=== PATIENT | female | born 1945 | race Hispanic/Latino ===

== ENCOUNTER 2018-01-03 09:58 | Observation (INO) | payer OTHER, MEDICARE ==
[~2018-01-03] VITALS: Ht 144.8 cm; Wt 41.5 kg
[~2018-01-03 09:58] MED LIST: AMLO-128 PO; ATOR20TA65 PO; BETH5TAB PO; CEFD300C3 PO; CLOP75TA32 PO; FURO20TA4 PO; GLIM1TAB2 PO; LACT1CAP58 PO; LEVE10006 PO; METO5 PO; MIRT7.5T11 PO; MULT-1250 PO; ONDA4TAB9 PO
[2018-01-03] MEDS ORDERED: LEVOFLOXACIN 500 MG/D5W 100 ML 100 ML ONE (10:38)
[2018-01-03 10:43] LABS: BASOPHILS % (AUTO) 1.4 % (0.0-5.0); EOSINOPHILS % (AUTO) 0.5 % (0.0-8.0); HEMATOCRIT 36.4 % (36-48); LYMPHOCYTES % (AUTO) 13.4 % (21.0-51.0); MEAN CORPUSCULAR HEMOGLOBIN 34.2 pg (27.0-33.0); MEAN CORPUSCULAR HGB CONC 34.2 g/dL (32.0-36.0); MEAN CORPUSCULAR VOLUME 99.9 fL (79-99); MONOCYTES % (AUTO) 5.3 % (3.0-13.0); NEUTROPHILS % (AUTO) 79.4 % (40.0-77.0); PLATELET COUNT (AUTO) 296 K/uL (130-400); RED BLOOD CELL COUNT(AUTO) 3.65 MIL/uL (4.00-5.50); RED CELL DISTRIBUTION WIDTH 14.4 % (11.0-15.5); WHITE BLOOD COUNT (AUTO) 11.3 K/uL (4.8-10.8)
[2018-01-03 10:44] LABS: APPEARANCE,URINE TURBID (CLEAR); BILIRUBIN,URINE NEGATIVE (NEGATIVE); COLOR,URINE YELLOW (YELLOW); GLUCOSE, URINE (UA) NEGATIVE (NEGATIVE); KETONES,URINE NEGATIVE (NEGATIVE); LEUKOCYTE ESTERASE ,URINE LARGE (NEGATIVE); NITRATE,URINE NEGATIVE (NEGATIVE); OCCULT BLOOD,URINE MODERATE (NEGATIVE); PH,URINE 7.5 (5.0-8.0); PROTEIN,URINE 100 (NEGATIVE); UROBILINOGEN,URINE 0.2 mg/dL (0.2-1.0)
[2018-01-03] MEDS ORDERED: MORPHINE SULFATE 8 MG/ML VIAL ONE (10:59)
[2018-01-03 11:07] LABS: BACTERIA,URINE Many /HPF (None Seen); RBC,URINE 0-1 /HPF (0-1); SQUAMOUS EPITHELIAL CELL,UR Rare /HPF (0-2); WBC,URINE TNTC /HPF (0-1)
[2018-01-03 11:40] LABS: INR 0.95 (0.85-1.15); PARTIAL THROMBOPLASTIN TIME 26.7 SEC (26.3-35.5)
[2018-01-03 12:31] LABS: BILIRUBIN,TOTAL 0.4 mg/dL (0.2-1.0); POTASSIUM 4.6 mmol/L (3.5-5.1); TOTAL PROTEIN, SERUM 8.9 g/dL (6.0-8.3)
[2018-01-03] MEDS ORDERED: CEFTRIAXONE SODIUM 1 GM IVP SCH (14:00)
[2018-01-03 16:12] VITALS: BP 173/78
[2018-01-03] MEDS ORDERED: HYDRALAZINE HCL 20 MG/ML VIAL IV PRN (16:15)
[2018-01-03] MEDS ORDERED: ACETAMINOPHEN 325 MG TAB PO PRN (16:15)
[2018-01-03] MEDS ORDERED: ONDANSETRON HCL 4 MG/2 ML VIAL IV PRN (16:15)
[2018-01-03] MEDS: MORPHINE SULFATE 2 MG/ML 1ML SYG IV PRN ×2 (16:35→22:13)
[2018-01-03] MEDS: AZTREONAM 1 GM VIAL IVP SCH (16:37)
[2018-01-03] MEDS: ACETAMINOPHEN-CODEINE 300/30MG TAB PO PRN (18:35)
[2018-01-03 20:00] VITALS: BP 145/70
[2018-01-03] MEDS: BETHANECHOL CHLORIDE 5 MG PO SCH (21:00)
[2018-01-03] MEDS: LEVETIRACETAM 500 MG TABLET PO SCH (22:07)
[2018-01-03] MEDS: MIRTAZAPINE 15 MG TABLET PO SCH (22:08)
[2018-01-04] VITALS: BP 138/66
[2018-01-04 04:00] VITALS: BP 142/56
[2018-01-04] MEDS: AZTREONAM 1 GM VIAL IVP SCH ×2 (04:11→18:29)
[2018-01-04] MEDS: MORPHINE SULFATE 2 MG/ML 1ML SYG IV PRN ×2 (04:29→21:25)
[2018-01-04 04:53] LABS: HEMATOCRIT 32.9 % (36-48); MEAN CORPUSCULAR HEMOGLOBIN 33.4 pg (27.0-33.0); MEAN CORPUSCULAR HGB CONC 33.3 g/dL (32.0-36.0); MEAN CORPUSCULAR VOLUME 100.3 fL (79-99); PLATELET COUNT (AUTO) 249 K/uL (130-400); RED BLOOD CELL COUNT(AUTO) 3.28 MIL/uL (4.00-5.50); RED CELL DISTRIBUTION WIDTH 14.4 % (11.0-15.5); WHITE BLOOD COUNT (AUTO) 8.3 K/uL (4.8-10.8)
[2018-01-04 05:05] LABS: POTASSIUM 5.2 mmol/L (3.5-5.1)
[2018-01-04 07:00] VITALS: BP 157/75
[2018-01-04] MEDS ORDERED: CLOPIDOGREL BISULFATE 75 MG TAB PO SCH (09:00)
[2018-01-04] MEDS: FUROSEMIDE 20 MG TABLET PO SCH (09:00)
[2018-01-04] MEDS: BETHANECHOL CHLORIDE 5 MG PO SCH ×3 (09:00→21:00)
[2018-01-04] MEDS: FAMOTIDINE/PF 20 MG/2 ML VIAL IV SCH (09:52)
[2018-01-04] MEDS: AMLODIPINE-BENAZEPRIL 5-20 MG PO SCH (09:53)
[2018-01-04] MEDS: MULTIVITAMIN WITH MINERALS TABLET PO SCH (09:53)
[2018-01-04] MEDS: LEVETIRACETAM 500 MG TABLET PO SCH ×2 (09:53→21:13)
[2018-01-04] MEDS: ATORVASTATIN CALCIUM 40 MG TABLET PO SCH (09:53)
[2018-01-04] MEDS: LACTOBACILLUS RHAMNOSUS GG 1 EACH CAP.SPRINK PO SCH (09:53)
[2018-01-04] MEDS: CLOPIDOGREL BISULFATE 75 MG TAB PO SCH (09:53)
[2018-01-04] MEDS ORDERED: LIDOCAINE HCL 2% JELLY 5 ML TP SCH (10:15)
[2018-01-04 11:19] VITALS: BP 131/71
[2018-01-04] MEDS ORDERED: 0.9% SODIUM CHLORIDE 250 ML IV BAG IV PRN (14:15)
[2018-01-04] MEDS ORDERED: ALBUMIN (HUMAN) 25% 100 ML IV PRN (14:15)
[2018-01-04] MEDS ORDERED: SODIUM CHLORIDE 0.9% 1000ML 1,000 ML IV PRN (14:15)
[2018-01-04] MEDS ORDERED: MORPHINE SULFATE 4 MG/1ML SYG ONE (16:32)
[2018-01-04] MEDS: PHENAZOPYRIDINE HCL 200 MG TABLET PO SCH ×2 (16:34→21:13)
[2018-01-04] MEDS ORDERED: FERR210T PO (18:02)
[2018-01-04] MEDS ORDERED: FLUO20TA29 PO (18:02)
[2018-01-04 20:00] VITALS: BP 90/65
[2018-01-04] MEDS: MIRTAZAPINE 15 MG TABLET PO SCH (21:13)
[2018-01-05] VITALS: BP 109/44
[2018-01-05 03:55] VITALS: BP 104/53
[2018-01-05] MEDS: AZTREONAM 1 GM VIAL IVP SCH (04:19)
[2018-01-05 05:15] LABS: BASOPHILS % (AUTO) 1.1 % (0.0-5.0); EOSINOPHILS % (AUTO) 2.9 % (0.0-8.0); HEMATOCRIT 32.5 % (36-48); LYMPHOCYTES % (AUTO) 24.8 % (21.0-51.0); MEAN CORPUSCULAR HEMOGLOBIN 34.3 pg (27.0-33.0); MEAN CORPUSCULAR HGB CONC 34.2 g/dL (32.0-36.0); MEAN CORPUSCULAR VOLUME 100.3 fL (79-99); MONOCYTES % (AUTO) 10.2 % (3.0-13.0); PLATELET COUNT (AUTO) 249 K/uL (130-400); RED BLOOD CELL COUNT(AUTO) 3.24 MIL/uL (4.00-5.50); RED CELL DISTRIBUTION WIDTH 14.2 % (11.0-15.5); WHITE BLOOD COUNT (AUTO) 9.9 K/uL (4.8-10.8)
[2018-01-05 05:22] LABS: CREATININE 5.1 mg/dL (0.5-1.5); POTASSIUM 4.8 mmol/L (3.5-5.1)
[2018-01-05 08:00] VITALS: BP 108/52
[2018-01-05] MEDS: BETHANECHOL CHLORIDE 5 MG PO SCH (08:56)
[2018-01-05] MEDS: FAMOTIDINE/PF 20 MG/2 ML VIAL IV SCH (09:18)
[2018-01-05] MEDS: LACTOBACILLUS RHAMNOSUS GG 1 EACH CAP.SPRINK PO SCH (09:19)
[2018-01-05] MEDS: PHENAZOPYRIDINE HCL 200 MG TABLET PO SCH (09:19)
[2018-01-05] MEDS: ATORVASTATIN CALCIUM 40 MG TABLET PO SCH (09:19)
[2018-01-05] MEDS: MULTIVITAMIN WITH MINERALS TABLET PO SCH (09:19)
[2018-01-05] MEDS: AMLODIPINE-BENAZEPRIL 5-20 MG PO SCH (09:19)
[2018-01-05] MEDS: LEVETIRACETAM 500 MG TABLET PO SCH (09:20)
[2018-01-05] MEDS: CLOPIDOGREL BISULFATE 75 MG TAB PO SCH (09:20)
[2018-01-05] MEDS: FUROSEMIDE 20 MG TABLET PO SCH (09:20)
[2018-01-05] MEDS: ACETAMINOPHEN-CODEINE 300/30MG TAB PO PRN (09:39)
[2018-01-05] MEDS ORDERED: LEVO500T2 PO (11:00)
[2018-01-05 12:00] VITALS: BP 113/54
== END 2018-01-05 14:52 | disposition home or self-care (01) ==
LOC: EDH 09:58 → INTOOBSV 13:37 → EDHIP 13:37 → 3BH 15:47
PROVIDERS: ADMIT Hospitalist; ATTEND Hospitalist
DX: N10 Acute pyelonephritis (principal); I12.0 Hypertensive chronic kidney disease with stage 5 chronic kidney disease or end stage renal disease; E11.21 Type 2 diabetes mellitus with diabetic nephropathy; N18.6 End stage renal disease; E78.5 Hyperlipidemia, unspecified; N73.9 Female pelvic inflammatory disease, unspecified; Z82.49 Family history of ischemic heart disease and other diseases of the circulatory system; Z83.3 Family history of diabetes mellitus; Z99.2 Dependence on renal dialysis; Z90.49 Acquired absence of other specified parts of digestive tract
CPT/HCPCS: G0257 ×85; 36415; 80048; 80053; 81001; 82948; 83690; 84484; 85025; 85027; 85610; 85730; 87040; 90935; 93005; 96374; 96375; 96376; A4218; G0378; J1956; J2270; J3490

== ENCOUNTER 2018-01-11 14:02 | Inpatient (IN) | payer OTHER, MEDICARE ==
[~2018-01-11] VITALS: Ht 144.8 cm; Wt 39.0 kg
[~2018-01-11 14:02] MED LIST changes: -CEFD300C3 PO; +FERR210T PO; +FLUO20TA29 PO; +LEVO500T2 PO
[2018-01-11 14:42] LABS: HEMATOCRIT 32.8 % (36-48); LYMPHOCYTES % (AUTO) 19.9 % (21.0-51.0); MEAN CORPUSCULAR HEMOGLOBIN 34.6 pg (27.0-33.0); MEAN CORPUSCULAR VOLUME 98.8 fL (79-99); MONOCYTES % (AUTO) 6.4 % (3.0-13.0); NEUTROPHILS % (AUTO) 70.7 % (40.0-77.0); PLATELET COUNT (AUTO) 396 K/uL (130-400); RED BLOOD CELL COUNT(AUTO) 3.32 MIL/uL (4.00-5.50); RED CELL DISTRIBUTION WIDTH 14.2 % (11.0-15.5); WHITE BLOOD COUNT (AUTO) 13.2 K/uL (4.8-10.8)
[2018-01-11 14:46] LABS: APPEARANCE,URINE Turbid (CLEAR); BILIRUBIN,URINE Negative (NEGATIVE); COLOR,URINE Yellow (YELLOW); GLUCOSE, URINE (UA) Negative (NEGATIVE); KETONES,URINE Negative (NEGATIVE); LEUKOCYTE ESTERASE ,URINE Large (NEGATIVE); NITRATE,URINE Negative (NEGATIVE); OCCULT BLOOD,URINE Small (NEGATIVE); PH,URINE 6.5 (5.0-8.0); PROTEIN,URINE POS 2+ (NEGATIVE); UROBILINOGEN,URINE 0.2 mg/dL (0.2-1.0)
[2018-01-11 14:53] LABS: POTASSIUM 3.4 mmol/L (3.5-5.1)
[2018-01-11 14:57] LABS: ALBUMIN 3.3 g/dL (3.5-5.0); BILIRUBIN,TOTAL 0.4 mg/dL (0.2-1.0)
[2018-01-11 15:00] LABS: BACTERIA,URINE Moderate /HPF (None Seen); RBC,URINE None Seen /HPF (0-1); SQUAMOUS EPITHELIAL CELL,UR None Seen /HPF (0-2); WBC,URINE 51-100 /HPF (0-1)
[2018-01-11] MEDS ORDERED: SODIUM CHLORIDE 0.9% 50 ML IV ONE (15:06)
[2018-01-11] MEDS ORDERED: CEFTRIAXONE SODIUM 1 GM ONE (15:06)
[2018-01-11] MEDS ORDERED: ONDANSETRON HCL 4 MG/2 ML VIAL ONE (15:11)
[2018-01-11] MEDS ORDERED: MORPHINE SULFATE 4 MG/1ML SYG ONE (15:11)
[2018-01-11] MEDS ORDERED: ACETAMINOPHEN ELIXIR 325 MG/10.15ML UDCUP ONE (16:04)
[2018-01-11] MEDS ORDERED: ENOXAPARIN SODIUM 30 MG/0.3 ML SQ ONE (23:06)
[2018-01-12] MEDS ORDERED: ACETAMINOPHEN 325 MG TAB ONE (00:03)
[2018-01-12 01:30] VITALS: BP 99/41
[2018-01-12 04:00] VITALS: BP 105/43
[2018-01-12 04:59] LABS: HEMATOCRIT 28.7 % (36-48); MEAN CORPUSCULAR HEMOGLOBIN 32.8 pg (27.0-33.0); MEAN CORPUSCULAR HGB CONC 33.3 g/dL (32.0-36.0); MEAN CORPUSCULAR VOLUME 98.6 fL (79-99); NUCLEATED RED BLOOD CELLS 0.1 % (0.0-0.19); PLATELET COUNT (AUTO) 315 K/uL (130-400); RED BLOOD CELL COUNT(AUTO) 2.91 MIL/uL (4.00-5.50); RED CELL DISTRIBUTION WIDTH 14.4 % (11.0-15.5); WHITE BLOOD COUNT (AUTO) 8.2 K/uL (4.8-10.8)
[2018-01-12 05:11] LABS: CREATININE 5.1 mg/dL (0.5-1.5)
[2018-01-12] MEDS ORDERED: DIPHENHYDRAMINE HCL 25 MG CAPSULE PO PRN (06:00)
[2018-01-12] MEDS ORDERED: DiphenhydrAMINE HCL 50 MG/ML VIAL IVP PRN (06:00)
[2018-01-12] MEDS ORDERED: MAG HYDROX/AL HYDROX/SIMETH ES 30 ML SUSP UDCUP PO PRN (06:00)
[2018-01-12] MEDS ORDERED: ACETAMINOPHEN 325 MG TAB PO PRN (06:00)
[2018-01-12] MEDS ORDERED: ONDANSETRON HCL 4 MG/2 ML VIAL IVP PRN (06:00)
[2018-01-12 07:30] VITALS: BP 107/40
[2018-01-12] MEDS: ENOXAPARIN SODIUM 30 MG/0.3 ML SQ SCH (08:58)
[2018-01-12 11:00] VITALS: BP 107/41
[2018-01-12] MEDS: BETHANECHOL 5 MG PO SCH ×2 (14:00→21:00)
[2018-01-12] MEDS ORDERED: GLUCAGON 1MG KIT 1 MG ML IM PRN (14:00)
[2018-01-12] MEDS ORDERED: DEXTROSE 50%-WATER 50 ML DISP.SYRIN IV PRN (14:00)
[2018-01-12 16:00] VITALS: BP 108/48
[2018-01-12] MEDS ORDERED: CEFTRIAXONE SODIUM 1 GM IVP SCH (16:00)
[2018-01-12] MEDS: FERRIC CITRATE 420 MG PO SCH (17:00)
[2018-01-12] MEDS: INSULIN HUMULIN R 100 UNIT/ML 3ML SQ SCH ×2 (17:36→21:00)
[2018-01-12 20:00] VITALS: BP 116/48
[2018-01-12] MEDS: MIRTAZAPINE 15 MG TABLET PO SCH (21:21)
[2018-01-12] MEDS: LEVETIRACETAM 500 MG TABLET PO SCH (21:21)
[2018-01-12] MEDS: FLUOXETINE HCL 20 MG CAPSULE PO SCH (21:21)
[2018-01-12] MEDS: ACETAMINOPHEN 325 MG TAB PO PRN (21:28)
[2018-01-13] VITALS: BP 124/53
[2018-01-13 04:00] VITALS: BP 113/49
[2018-01-13 05:09] LABS: HEMATOCRIT 28.1 % (36-48); MEAN CORPUSCULAR HEMOGLOBIN 34.4 pg (27.0-33.0); MEAN CORPUSCULAR HGB CONC 34.4 g/dL (32.0-36.0); MEAN CORPUSCULAR VOLUME 99.9 fL (79-99); PLATELET COUNT (AUTO) 334 K/uL (130-400); RED BLOOD CELL COUNT(AUTO) 2.82 MIL/uL (4.00-5.50); RED CELL DISTRIBUTION WIDTH 14.2 % (11.0-15.5); WHITE BLOOD COUNT (AUTO) 9.8 K/uL (4.8-10.8)
[2018-01-13 05:17] LABS: CREATININE 6.6 mg/dL (0.5-1.5); POTASSIUM 4.1 mmol/L (3.5-5.1)
[2018-01-13] MEDS: FERRIC CITRATE 420 MG PO SCH ×3 (06:08→17:00)
[2018-01-13] MEDS: ACETAMINOPHEN 325 MG TAB PO PRN ×2 (06:54→21:24)
[2018-01-13] MEDS: INSULIN HUMULIN R 100 UNIT/ML 3ML SQ SCH ×4 (06:57→21:29)
[2018-01-13 07:30] VITALS: BP 102/45
[2018-01-13] MEDS: LIDOCAINE HCL 2% JELLY 5 ML TP SCH (08:42)
[2018-01-13] MEDS: BETHANECHOL 5 MG PO SCH ×3 (09:00→21:00)
[2018-01-13] MEDS: LEVETIRACETAM 500 MG TABLET PO SCH ×2 (10:48→21:23)
[2018-01-13] MEDS: MULTIVITAMINS/MINERALS/IRO TAB PO SCH (10:48)
[2018-01-13] MEDS: GLIMEPIRIDE 2 MG TABLET PO SCH (10:48)
[2018-01-13 11:00] VITALS: BP 123/48
[2018-01-13] MEDS ORDERED: SODIUM CHLORIDE 0.9% 1000ML 1,000 ML IV PRN (12:45)
[2018-01-13] MEDS ORDERED: ALBUMIN (HUMAN) 25% 100 ML IV PRN (12:45)
[2018-01-13] MEDS ORDERED: 0.9% SODIUM CHLORIDE 250 ML IV BAG IV PRN (12:45)
[2018-01-13] MEDS: MORPHINE SULFATE 2 MG/ML 1ML SYG IVP PRN (13:12)
[2018-01-13] MEDS: MEROPENEM 1 GM VIAL IVP SCH (13:39)
[2018-01-13] MEDS ORDERED: SODIUM CHLORIDE 0.9% 1000ML 1,000 ML IV SCH (14:30)
[2018-01-13 14:43] LABS: INR 0.93 (0.85-1.15); PROTHROMBIN TIME 9.8 SEC (9.6-11.6)
[2018-01-13 16:00] VITALS: BP 142/55
[2018-01-13] MEDS: ATORVASTATIN CALCIUM 40 MG TABLET PO SCH (17:43)
[2018-01-13] MEDS: FUROSEMIDE 20 MG TABLET PO SCH (17:43)
[2018-01-13] MEDS: CLOPIDOGREL BISULFATE 75 MG TAB PO SCH (17:44)
[2018-01-13] MEDS: ENOXAPARIN SODIUM 30 MG/0.3 ML SQ SCH (17:45)
[2018-01-13 19:00] VITALS: BP 128/61
[2018-01-13] MEDS: FLUOXETINE HCL 20 MG CAPSULE PO SCH (21:23)
[2018-01-13] MEDS: MIRTAZAPINE 15 MG TABLET PO SCH (21:23)
[2018-01-14] VITALS (7 sets, daily range): BP systolic 101–160; BP diastolic 45–67
[2018-01-14] MEDS: FERRIC CITRATE 420 MG PO SCH ×3 (05:59→16:07)
[2018-01-14] MEDS: INSULIN HUMULIN R 100 UNIT/ML 3ML SQ SCH ×4 (06:14→21:52)
[2018-01-14] MEDS: MORPHINE SULFATE 2 MG/ML 1ML SYG IVP PRN (08:10)
[2018-01-14] MEDS: MULTIVITAMINS/MINERALS/IRO TAB PO SCH (08:10)
[2018-01-14] MEDS: GLIMEPIRIDE 2 MG TABLET PO SCH (08:10)
[2018-01-14] MEDS: ATORVASTATIN CALCIUM 40 MG TABLET PO SCH (08:11)
[2018-01-14] MEDS: LEVETIRACETAM 500 MG TABLET PO SCH ×2 (08:11→21:03)
[2018-01-14] MEDS: FUROSEMIDE 20 MG TABLET PO SCH (08:11)
[2018-01-14] MEDS: BETHANECHOL 5 MG PO SCH ×3 (08:12→21:00)
[2018-01-14] MEDS: ACETAMINOPHEN-CODEINE 300/30MG TAB PO PRN ×2 (10:07→16:18)
[2018-01-14] MEDS: ENOXAPARIN SODIUM 30 MG/0.3 ML SQ SCH (16:05)
[2018-01-14] MEDS: CLOPIDOGREL BISULFATE 75 MG TAB PO SCH (16:05)
[2018-01-14] MEDS: MEROPENEM 1 GM VIAL IVP SCH (16:05)
[2018-01-14] MEDS: MIRTAZAPINE 15 MG TABLET PO SCH (21:03)
[2018-01-14] MEDS: FLUOXETINE HCL 20 MG CAPSULE PO SCH (21:03)
[2018-01-15] MEDS: ACETAMINOPHEN-CODEINE 300/30MG TAB PO PRN ×2 (02:28→09:12)
[2018-01-15 03:20] VITALS: BP 140/69
[2018-01-15 05:50] LABS: BASOPHILS % (AUTO) 0.8 % (0.0-5.0); EOSINOPHILS % (AUTO) 2.2 % (0.0-8.0); HEMATOCRIT 28.6 % (36-48); LYMPHOCYTES % (AUTO) 17.2 % (21.0-51.0); MEAN CORPUSCULAR HEMOGLOBIN 34.2 pg (27.0-33.0); MEAN CORPUSCULAR HGB CONC 34.4 g/dL (32.0-36.0); MEAN CORPUSCULAR VOLUME 99.5 fL (79-99); MONOCYTES % (AUTO) 9.4 % (3.0-13.0); NEUTROPHILS % (AUTO) 70.4 % (40.0-77.0); PLATELET COUNT (AUTO) 344 K/uL (130-400); RED BLOOD CELL COUNT(AUTO) 2.87 MIL/uL (4.00-5.50); RED CELL DISTRIBUTION WIDTH 14.4 % (11.0-15.5); WHITE BLOOD COUNT (AUTO) 9.7 K/uL (4.8-10.8)
[2018-01-15 05:53] LABS: POTASSIUM 3.9 mmol/L (3.5-5.1)
[2018-01-15] MEDS: INSULIN HUMULIN R 100 UNIT/ML 3ML SQ SCH ×3 (07:30→21:00)
[2018-01-15] MEDS: FERRIC CITRATE 420 MG PO SCH ×2 (07:30→11:30)
[2018-01-15 08:00] VITALS: BP 115/62
[2018-01-15] MEDS: BETHANECHOL 5 MG PO SCH ×2 (09:00→14:00)
[2018-01-15] MEDS: LEVETIRACETAM 500 MG TABLET PO SCH (09:11)
[2018-01-15] MEDS: CLOPIDOGREL BISULFATE 75 MG TAB PO SCH (09:11)
[2018-01-15] MEDS: MULTIVITAMINS/MINERALS/IRO TAB PO SCH (09:11)
[2018-01-15 12:00] VITALS: BP 104/64
[2018-01-15] MEDS: MEROPENEM 1 GM VIAL IVP SCH (14:42)
[2018-01-15] MEDS: LIDOCAINE HCL 2% JELLY 5 ML TP SCH (14:46)
[2018-01-15] MEDS: MORPHINE SULFATE 2 MG/ML 1ML SYG IVP PRN (14:59)
[2018-01-15 16:00] VITALS: BP 106/58
[2018-01-15 20:10] VITALS: BP 136/70
[2018-01-15] MEDS ORDERED: ATORVASTATIN CALCIUM 40 MG TABLET PO SCH (21:00)
== END 2018-01-15 21:40 | disposition home health service (06) | DRG 689 ==
LOC: EDH 14:02 → OBSVTOIN 17:40 → EDHIP 17:40 → 3DH 01-12 00:35
PROVIDERS: ADMIT Family Medicine; ATTEND Family Medicine
PROC: 5A1D70Z Performance of Urinary Filtration, Intermittent, Less than 6 Hours Per Day (ICD-10-PCS; principal; 2018-01-13)
PROC: 02HV33Z Insertion of Infusion Device into Superior Vena Cava, Percutaneous Approach (ICD-10-PCS; 2018-01-14)
PROC: 5A1D70Z Performance of Urinary Filtration, Intermittent, Less than 6 Hours Per Day (ICD-10-PCS; 2018-01-15)
DX: N39.0 Urinary tract infection, site not specified (principal); N18.6 End stage renal disease; I12.0 Hypertensive chronic kidney disease with stage 5 chronic kidney disease or end stage renal disease; E11.22 Type 2 diabetes mellitus with diabetic chronic kidney disease; D64.9 Anemia, unspecified; R53.81 Other malaise; Z16.12 Extended spectrum beta lactamase (ESBL) resistance; E11.21 Type 2 diabetes mellitus with diabetic nephropathy; E11.51 Type 2 diabetes mellitus with diabetic peripheral angiopathy without gangrene; B96.20 Unspecified Escherichia coli [E. coli] as the cause of diseases classified elsewhere; E78.5 Hyperlipidemia, unspecified; N32.89 Other specified disorders of bladder; Z16.24 Resistance to multiple antibiotics; Z72.0 Tobacco use; Z99.2 Dependence on renal dialysis; Z87.440 Personal history of urinary (tract) infections; Z88.0 Allergy status to penicillin; Z90.721 Acquired absence of ovaries, unilateral; Z98.49 Cataract extraction status, unspecified eye; Z83.3 Family history of diabetes mellitus; Z82.49 Family history of ischemic heart disease and other diseases of the circulatory system
CPT/HCPCS: 36415; 71045; 74176; 76770; 80048; 80053; 81001; 82948; 85025; 85027; 85610; 87077; 87088; 87186; 90935; A4218; C1894; J0696; J1650; J1815; J2185; J2270; J2405; J7030

== ENCOUNTER 2018-03-22 10:04 | Observation (INO) | payer OTHER, MEDICARE ==
[~2018-03-22] VITALS: Ht 144.8 cm; Wt 39.5 kg
[~2018-03-22 10:04] MED LIST changes: -LEVO500T2 PO; -METO5 PO
[2018-03-22 10:43] LABS: BASOPHILS % (AUTO) 0.9 % (0.0-5.0); HEMATOCRIT 30.7 % (36-48); LYMPHOCYTES % (AUTO) 18.2 % (21.0-51.0); MEAN CORPUSCULAR HGB CONC 33.8 g/dL (32.0-36.0); MEAN CORPUSCULAR VOLUME 100.8 fL (79-99); MONOCYTES % (AUTO) 7.6 % (3.0-13.0); NEUTROPHILS % (AUTO) 71.3 % (40.0-77.0); PLATELET COUNT (AUTO) 280 K/uL (130-400); RED BLOOD CELL COUNT(AUTO) 3.04 MIL/uL (4.00-5.50); RED CELL DISTRIBUTION WIDTH 15.8 % (11.0-15.5)
[2018-03-22 10:51] LABS: ALBUMIN 3.3 g/dL (3.5-5.0); ASPARTATE AMINOTRANSFERASE 16 U/L (10-37); CARBON DIOXIDE 27 mmol/L (21-32); CREATININE 7.4 mg/dL (0.5-1.5); GLOMERULAR FILTR. RATE CALC 6 mL/min (>60); GLUCOSE,RANDOM 177 mg/dL (70-105); LIPASE 51 U/L (114-286); POTASSIUM 5.6 mmol/L (3.5-5.1); SODIUM SERUM 129 mmol/L (136-145); TOTAL PROTEIN, SERUM 7.8 g/dL (6.0-8.3); UREA NITROGEN, BLOOD 68 mg/dL (7-18)
[2018-03-22 10:54] LABS: ALANINE AMINOTRANSFERASE < 6 U/L (12-78)
[2018-03-22 10:56] LABS: CHLORIDE 86 mmol/L (101-111)
[2018-03-22] MEDS ORDERED: ONDANSETRON HCL 4 MG/2 ML VIAL ONE (11:13)
[2018-03-22] MEDS ORDERED: LORAZEPAM 2 MG/ML 1 ML VIAL ONE (11:14)
[2018-03-22 11:19] LABS: APPEARANCE,URINE Clear (CLEAR); BILIRUBIN,URINE Negative (NEGATIVE); COLOR,URINE Yellow (YELLOW); GLUCOSE, URINE (UA) Negative (NEGATIVE); KETONES,URINE Negative (NEGATIVE); LEUKOCYTE ESTERASE ,URINE Negative (NEGATIVE); NITRATE,URINE Negative (NEGATIVE); OCCULT BLOOD,URINE Negative (NEGATIVE); PH,URINE >=9.0 (5.0-8.0); PROTEIN,URINE POS 2+ (NEGATIVE); UROBILINOGEN,URINE 0.2 mg/dL (0.2-1.0)
[2018-03-22 11:46] LABS: BACTERIA,URINE None Seen /HPF (None Seen); RBC,URINE None Seen /HPF (0-1); WBC,URINE None Seen /HPF (0-1)
[2018-03-22] MEDS ORDERED: ACETAMINOPHEN 325 MG TAB PO PRN ×2 (14:15)
[2018-03-22] MEDS ORDERED: HYDRALAZINE HCL 20 MG/ML VIAL IV PRN (14:15)
[2018-03-22] MEDS ORDERED: ONDANSETRON HCL 4 MG/2 ML VIAL IV PRN (14:15)
[2018-03-22] MEDS ORDERED: GADODIAMIDE 5 MMOL/10 ML VIAL 5 MMOL/10 ML ML IV ONE (14:27)
[2018-03-22 15:00] LABS: HEMOGLOBIN A1C 7.5 % (4.0-6.0)
[2018-03-22 15:09] LABS: MAGNESIUM 2.5 mg/dL (1.80-2.40); PHOSPHORUS 8.9 mg/dL (2.5-4.9); THYROID STIMULATING HORMONE 0.8 uIU/mL (0.36-3.74)
[2018-03-22] MEDS ORDERED: SODIUM CHLORIDE 0.9% 1000ML 1,000 ML IV ONE (18:17)
[2018-03-22] MEDS ORDERED: ACETAMINOPHEN 325 MG TAB ONE (20:28)
[2018-03-22] MEDS ORDERED: CLONIDINE HCL 0.1 MG TABLET ONE (20:28)
[2018-03-22] MEDS ORDERED: ATORVASTATIN CALCIUM 20 MG TABLET ONE (20:28)
[2018-03-22] MEDS ORDERED: LEVETIRACETAM 500 MG TABLET PO ONE (20:29)
[2018-03-22] MEDS ORDERED: METOPROLOL TARTRATE 25 MG TAB ONE (20:29)
[2018-03-22] MEDS: MIRTAZAPINE 15 MG TABLET PO SCH (21:00)
[2018-03-22] MEDS: ATORVASTATIN CALCIUM 20 MG TABLET PO SCH (21:00)
[2018-03-22] MEDS: FLUOXETINE HCL 20 MG CAPSULE PO SCH (21:00)
[2018-03-23] MEDS: CLONIDINE HCL 0.1 MG TABLET PO SCH ×3 (08:00→21:31)
[2018-03-23] MEDS: METOPROLOL TARTRATE 25 MG TAB PO SCH ×3 (08:00→21:00)
[2018-03-23] MEDS: LEVETIRACETAM 500 MG TABLET PO SCH ×3 (08:00→15:00)
[2018-03-23] MEDS ORDERED: MORPHINE SULFATE 4 MG/1ML SYG ONE (08:03)
[2018-03-23] MEDS ORDERED: LEVETIRACETAM 500 MG TABLET PO ONE (08:22)
[2018-03-23] MEDS ORDERED: FAMOTIDINE 20MG TAB 20 MG TAB ONE (08:22)
[2018-03-23] MEDS ORDERED: CLOPIDOGREL BISULFATE 75 MG TAB ONE (08:22)
[2018-03-23] MEDS ORDERED: CLONIDINE HCL 0.1 MG TABLET ONE (08:22)
[2018-03-23] MEDS ORDERED: ASPIRIN 81MG TAB.CHEW ONE (08:22)
[2018-03-23] MEDS ORDERED: METOPROLOL TARTRATE 25 MG TAB ONE (08:23)
[2018-03-23] MEDS: CLOPIDOGREL BISULFATE 75 MG TAB PO SCH (08:29)
[2018-03-23] MEDS: FAMOTIDINE 20MG TAB 20 MG TAB PO SCH (08:29)
[2018-03-23] MEDS: ASPIRIN 81 MG EC TAB PO SCH (08:29)
[2018-03-23 08:56] LABS: HEMATOCRIT 31.7 % (36-48); MEAN CORPUSCULAR HEMOGLOBIN 33.7 pg (27.0-33.0); MEAN CORPUSCULAR HGB CONC 33.3 g/dL (32.0-36.0); PLATELET COUNT (AUTO) 267 K/uL (130-400); RED BLOOD CELL COUNT(AUTO) 3.13 MIL/uL (4.00-5.50); RED CELL DISTRIBUTION WIDTH 15.4 % (11.0-15.5); WHITE BLOOD COUNT (AUTO) 6.8 K/uL (4.8-10.8)
[2018-03-23 09:02] LABS: HEMOGLOBIN A1C 7.7 % (4.0-6.0)
[2018-03-23 09:11] LABS: MAGNESIUM 2.6 mg/dL (1.80-2.40); POTASSIUM 5.2 mmol/L (3.5-5.1)
[2018-03-23 09:16] LABS: CREATININE 8.4 mg/dL (0.5-1.5)
[2018-03-23] MEDS: AMLODIPINE-BENAZEPRIL 5-20 MG PO SCH (09:45)
[2018-03-23] MEDS: GLIMEPIRIDE 2 MG TABLET PO SCH (09:45)
[2018-03-23 11:00] VITALS: BP 160/71
[2018-03-23] MEDS: INSULIN HUMULIN R 100 UNIT/ML 3ML SQ SCH ×3 (11:30→21:00)
[2018-03-23] MEDS ORDERED: LEVETIRACETAM 500 MG TABLET PO SCH (11:40)
[2018-03-23] MEDS ORDERED: COMPOUND IV REFRIGERATED 1 EACH IVSOLN MISC PRN (11:45)
[2018-03-23 12:00] VITALS: BP 172/57
[2018-03-23] MEDS ORDERED: FOSPHENYTOIN SODIUM 100 MG in SODIUM CHLORIDE 0.9% 50 ML IJ SCH (12:00)
[2018-03-23 16:00] VITALS: BP 111/47
[2018-03-23] MEDS ORDERED: COMPOUND IV MISC 1 EACH IVSOLN MISC PRN (16:30)
[2018-03-23] MEDS ORDERED: MORPHINE SULFATE 2 MG/ML 1ML SYG IVP PRN (16:45)
[2018-03-23] MEDS ORDERED: MORPHINE SULFATE 4 MG/1ML SYG IM PRN (16:45)
[2018-03-23 20:07] VITALS: BP 154/56
[2018-03-23] MEDS: ATORVASTATIN CALCIUM 20 MG TABLET PO SCH (21:30)
[2018-03-23] MEDS: FLUOXETINE HCL 20 MG CAPSULE PO SCH (21:30)
[2018-03-23] MEDS: MIRTAZAPINE 15 MG TABLET PO SCH (21:32)
[2018-03-23] MEDS: FOSPHENYTOIN SODIUM 100 MG in SODIUM CHLORIDE 0.9% 50 ML IJ SCH (23:49)
[2018-03-24] VITALS: BP 139/45
[2018-03-24 04:00] VITALS: BP 114/48
[2018-03-24 04:11] LABS: HEMATOCRIT 27.5 % (36-48); MEAN CORPUSCULAR HEMOGLOBIN 33.8 pg (27.0-33.0); MEAN CORPUSCULAR HGB CONC 33.3 g/dL (32.0-36.0); MEAN CORPUSCULAR VOLUME 101.6 fL (79-99); PLATELET COUNT (AUTO) 258 K/uL (130-400); RED BLOOD CELL COUNT(AUTO) 2.71 MIL/uL (4.00-5.50); RED CELL DISTRIBUTION WIDTH 15.8 % (11.0-15.5); WHITE BLOOD COUNT (AUTO) 8.1 K/uL (4.8-10.8)
[2018-03-24 04:35] LABS: MAGNESIUM 2.5 mg/dL (1.80-2.40); PHOSPHORUS 10.4 mg/dL (2.5-4.9)
[2018-03-24 04:52] LABS: CREATININE 8.6 mg/dL (0.5-1.5)
[2018-03-24] MEDS: INSULIN HUMULIN R 100 UNIT/ML 3ML SQ SCH ×2 (06:53→11:30)
[2018-03-24 08:00] VITALS: BP 140/53
[2018-03-24] MEDS ORDERED: 0.9% SODIUM CHLORIDE 1000 ML IV BAG IV PRN (08:45)
[2018-03-24] MEDS ORDERED: SODIUM CHLORIDE 0.9% 1000ML 1,000 ML IV PRN (08:45)
[2018-03-24] MEDS ORDERED: ACETAMINOPHEN 325 MG TAB PO PRN (08:45)
[2018-03-24] MEDS ORDERED: LIDOCAINE HCL-MPF 1% 2ML VIAL IJ PRN (08:45)
[2018-03-24] MEDS: CLOPIDOGREL BISULFATE 75 MG TAB PO SCH (09:00)
[2018-03-24 11:00] VITALS: BP 131/85
[2018-03-24] MEDS: METOPROLOL TARTRATE 25 MG TAB PO SCH (12:30)
[2018-03-24] MEDS: ASPIRIN 81 MG EC TAB PO SCH (12:30)
[2018-03-24] MEDS: FAMOTIDINE 20MG TAB 20 MG TAB PO SCH (12:30)
[2018-03-24] MEDS: LEVETIRACETAM 500 MG TABLET PO SCH (12:30)
[2018-03-24] MEDS: GLIMEPIRIDE 2 MG TABLET PO SCH (12:30)
[2018-03-24 12:31] VITALS: BP 186/78
[2018-03-24] MEDS: AMLODIPINE-BENAZEPRIL 5-20 MG PO SCH (12:31)
[2018-03-24] MEDS: CLONIDINE HCL 0.1 MG TABLET PO SCH (12:31)
[2018-03-24] MEDS: FOSPHENYTOIN SODIUM 100 MG in SODIUM CHLORIDE 0.9% 50 ML IJ SCH (12:32)
== END 2018-03-24 15:47 | disposition home or self-care (01) ==
LOC: EDH 10:04 → EDHIP 14:14 → 4BH 03-23 11:29
PROVIDERS: ADMIT Internal Medicine; ATTEND Internal Medicine
DX: R27.8 Other lack of coordination (principal); R20.0 Anesthesia of skin; E11.22 Type 2 diabetes mellitus with diabetic chronic kidney disease; I12.0 Hypertensive chronic kidney disease with stage 5 chronic kidney disease or end stage renal disease; N18.6 End stage renal disease; E83.39 Other disorders of phosphorus metabolism; E78.2 Mixed hyperlipidemia; D63.1 Anemia in chronic kidney disease; G40.909 Epilepsy, unspecified, not intractable, without status epilepticus; F17.201 Nicotine dependence, unspecified, in remission; Z82.49 Family history of ischemic heart disease and other diseases of the circulatory system; Z83.3 Family history of diabetes mellitus; Z99.2 Dependence on renal dialysis
CPT/HCPCS: 36415 ×3; 70551; 80048 ×2; 80053; 80177; 81001; 82948 ×5; 83036 ×2; 83690; 83735 ×3; 84100 ×3; 84443; 85025; 85027 ×2; 92610; G0257; G0378 ×50; J2060; J2270; J2405; J7030; Q2009 ×2; 90935; A9579

== ENCOUNTER 2018-06-02 07:33 | Emergency (ER) | payer OTHER, MEDICARE ==
[2018-06-02] MEDS ORDERED: DICYCLOMINE HCL 10 MG/ML 2ML AMP IM ONE (07:55)
[2018-06-02] MEDS ORDERED: ONDANSETRON HCL 4 MG/2 ML VIAL ONE (07:55)
[2018-06-02 08:21] LABS: BASOPHILS % (AUTO) 0.9 % (0.0-5.0); EOSINOPHILS % (AUTO) 0.7 % (0.0-8.0); HEMATOCRIT 34.6 % (36-48); LYMPHOCYTES % (AUTO) 7.9 % (21.0-51.0); MEAN CORPUSCULAR HEMOGLOBIN 34.3 pg (27.0-33.0); MEAN CORPUSCULAR VOLUME 100.8 fL (79-99); MONOCYTES % (AUTO) 5.6 % (3.0-13.0); NEUTROPHILS % (AUTO) 84.9 % (40.0-77.0); NUCLEATED RED BLOOD CELLS 0.1 % (0.0-0.19); PLATELET COUNT (AUTO) 324 K/uL (130-400); RED BLOOD CELL COUNT(AUTO) 3.43 MIL/uL (4.00-5.50); RED CELL DISTRIBUTION WIDTH 16.5 % (11.0-15.5); WHITE BLOOD COUNT (AUTO) 11.7 K/uL (4.8-10.8)
[2018-06-02 08:34] LABS: CREATININE 5.8 mg/dL (0.5-1.5); POTASSIUM 5.1 mmol/L (3.5-5.1)
[2018-06-02 08:39] LABS: ALBUMIN 3.7 g/dL (3.5-5.0); BILIRUBIN,TOTAL 1.5 mg/dL (0.2-1.0); TOTAL PROTEIN, SERUM 7.7 g/dL (6.0-8.3)
== END 2018-06-02 10:32 | disposition home or self-care (01) ==
LOC: EDH 07:33
DX: K52.9 Noninfective gastroenteritis and colitis, unspecified (principal); I12.0 Hypertensive chronic kidney disease with stage 5 chronic kidney disease or end stage renal disease; E11.22 Type 2 diabetes mellitus with diabetic chronic kidney disease; N18.6 End stage renal disease; E78.5 Hyperlipidemia, unspecified; Z88.0 Allergy status to penicillin; Z90.710 Acquired absence of both cervix and uterus; Z90.49 Acquired absence of other specified parts of digestive tract; Z99.2 Dependence on renal dialysis; Z72.0 Tobacco use
CPT/HCPCS: 36415; 71045; 80053; 85025; 96361; 96372; 96374; 99285; J0500; J2405

== ENCOUNTER 2018-08-08 20:41 | Observation (INO) | payer OTHER, MEDICARE ==
[~2018-08-08] VITALS: Ht 144.8 cm; Wt 38.4 kg
[2018-08-08 21:28] LABS: BASOPHILS % (AUTO) 0.5 % (0.0-5.0); LYMPHOCYTES % (AUTO) 17.3 % (21.0-51.0); MEAN CORPUSCULAR HEMOGLOBIN 34.1 pg (27.0-33.0); MEAN CORPUSCULAR HGB CONC 34.9 g/dL (32.0-36.0); MEAN CORPUSCULAR VOLUME 97.7 fL (79-99); NEUTROPHILS % (AUTO) 79.2 % (40.0-77.0); PLATELET COUNT (AUTO) 509 K/uL (130-400); RED BLOOD CELL COUNT(AUTO) 3.58 MIL/uL (4.00-5.50); RED CELL DISTRIBUTION WIDTH 16.7 % (11.0-15.5); WHITE BLOOD COUNT (AUTO) 8.1 K/uL (4.8-10.8)
[2018-08-08] MEDS ORDERED: ONDANSETRON HCL 4 MG/2 ML VIAL ONE (21:36)
[2018-08-08 21:42] LABS: ALBUMIN 3.6 g/dL (3.5-5.0); BILIRUBIN,TOTAL 1.5 mg/dL (0.2-1.0); CREATININE 7.1 mg/dL (0.5-1.5); POTASSIUM 4.9 mmol/L (3.5-5.1); TOTAL PROTEIN, SERUM 9.1 g/dL (6.0-8.3)
[2018-08-08] MEDS ORDERED: INSULIN HUMULIN R 100 UNIT/ML 3ML ONE (22:25)
[2018-08-08] MEDS ORDERED: MORPHINE SULFATE 2 MG/ML 1ML SYG ONE (22:35)
[2018-08-09 00:20] LABS: APPEARANCE,URINE TURBID (CLEAR); BILIRUBIN,URINE NEGATIVE (NEGATIVE); COLOR,URINE YELLOW (YELLOW); GLUCOSE, URINE (UA) NEGATIVE (NEGATIVE); KETONES,URINE NEGATIVE (NEGATIVE); LEUKOCYTE ESTERASE ,URINE LARGE (NEGATIVE); NITRATE,URINE NEGATIVE (NEGATIVE); OCCULT BLOOD,URINE SMALL (NEGATIVE); PROTEIN,URINE 100 mg/dL (NEGATIVE); UROBILINOGEN,URINE 0.2 mg/dL (0.2-1.0)
[2018-08-09 00:25] LABS: RBC,URINE 0-1 /HPF (0-1)
[2018-08-09 00:26] LABS: BACTERIA,URINE Rare /HPF (None Seen); SQUAMOUS EPITHELIAL CELL,UR None Seen /HPF (0-2); WBC,URINE TNTC /HPF (0-1)
[2018-08-09] MEDS ORDERED: CEFTRIAXONE SODIUM 1 GM ONE (00:49)
[2018-08-09] MEDS ORDERED: ONDANSETRON HCL 4 MG/2 ML VIAL IV PRN (01:00)
[2018-08-09] MEDS: CEFTRIAXONE SODIUM 1 GM IV SCH (01:00)
[2018-08-09] MEDS ORDERED: SODIUM CHLORIDE 0.9% 1000ML 1,000 ML IV ONE (01:34)
[2018-08-09] MEDS ORDERED: ACETAMINOPHEN 325 MG TAB ONE (06:56)
[2018-08-09] MEDS ORDERED: ENOXAPARIN SODIUM 30 MG/0.3 ML SQ ONE (07:56)
[2018-08-09] MEDS ORDERED: FAMOTIDINE/PF 20 MG/2 ML VIAL IV ONE (07:57)
[2018-08-09] MEDS ORDERED: ONDANSETRON HCL 4 MG/2 ML VIAL ONE (08:05)
[2018-08-09] MEDS ORDERED: ENOXAPARIN SODIUM 30 MG/0.3 ML SQ SCH (09:00)
[2018-08-09] MEDS: FAMOTIDINE/PF 20 MG/2 ML VIAL IV SCH (09:00)
[2018-08-09] MEDS ORDERED: HYDRALAZINE HCL 20 MG/ML VIAL IV PRN (10:15)
--- NOTE | 2018-08-09 10:54 | NUR ---
[facility] met with pt who lives alone, but states her daughter Svetlana Quinteros [phone] sometimes stays with pt if needed. Pt states [place] is her provider 26hrs a week thru [employer] to assist with ADLS, transport and home management. Pt goes to [facility] dialysis TTS at 9:30 and uses Medicaid transport. Pt has jannette coker, w/c, bsc, shower chair and [employer] 2x a week. Pt sees Dr Jamison and uses [facility] rx. Plan [place]. CM to follow and assist as needed Addendum: 08/09/18 at 1101 by LITZY BROWN Amended: Links added.
--- NOTE | 2018-08-09 16:07 | NUR ---
ROUNDS DR NOVA CARO CONTACT VIA TELEPHONE, FRONT DESK RECEPTIONIST DR JULIANA ALLEN, INFORMED OF PT'S REGULAR DIALYSIS SCHEDULE, RECEIVED ORDERS TO BEGIN DIALYSIS IN AM
[2018-08-09] MEDS: INSULIN HUMULIN R 100 UNIT/ML 3ML SQ SCH ×2 (16:30→21:00)
--- NOTE | 2018-08-09 17:42 | NUR ---
DIALYSIS SPOKE WITH KYLE, DIALYSIS NURSE REGARDING PT, STATED HE WILL ORDER HEPATITIS PANEL IN AM TO START DIALYSIS ON PT
[2018-08-09 17:59] VITALS: BP 148/68
[2018-08-09] MEDS: ACETAMINOPHEN 325 MG TAB PO PRN (18:39)
[2018-08-09 20:00] VITALS: BP 144/64
[2018-08-10] VITALS (7 sets, daily range): BP systolic 134–195; BP diastolic 58–75
[2018-08-10] MEDS: CEFTRIAXONE SODIUM 1 GM IV SCH ×2 (01:16→21:07)
[2018-08-10] MEDS: ACETAMINOPHEN 325 MG TAB PO PRN ×3 (01:24→21:20)
[2018-08-10 06:00] LABS: HEMATOCRIT 29.6 % (36-48); MEAN CORPUSCULAR HEMOGLOBIN 33.2 pg (27.0-33.0); MEAN CORPUSCULAR HGB CONC 33.6 g/dL (32.0-36.0); MEAN CORPUSCULAR VOLUME 98.7 fL (79-99); PLATELET COUNT (AUTO) 419 K/uL (130-400); RED BLOOD CELL COUNT(AUTO) 2.99 MIL/uL (4.00-5.50); RED CELL DISTRIBUTION WIDTH 16.5 % (11.0-15.5); WHITE BLOOD COUNT (AUTO) 8.4 K/uL (4.8-10.8)
--- NOTE | 2018-08-10 06:17 | NUR ---
DIALYSIS NURSE KYLE BROUGHT EQUIPMENT TO PT'S ROOM TO DIALYSE PT.
[2018-08-10] MEDS ORDERED: SODIUM CHLORIDE 0.9% 1000ML 2,000 ML IV ONE (06:18)
[2018-08-10 06:21] LABS: CREATININE 7.8 mg/dL (0.5-1.5); POTASSIUM 4.7 mmol/L (3.5-5.1)
[2018-08-10] MEDS: INSULIN HUMULIN R 100 UNIT/ML 3ML SQ SCH ×4 (06:48→21:08)
--- NOTE | 2018-08-10 07:12 | NUR ---
REPORT GIVEN TO KEISHA KAUR LVN
[2018-08-10] MEDS: FAMOTIDINE/PF 20 MG/2 ML VIAL IV SCH (09:00)
[2018-08-10] MEDS: ENOXAPARIN SODIUM 30 MG/0.3 ML SQ SCH (10:00)
[2018-08-10 10:33] LABS: ALBUMIN 3.1 g/dL (3.5-5.0); BILIRUBIN,DIRECT 0.1 mg/dL (0.0-0.3); BILIRUBIN,TOTAL 0.6 mg/dL (0.2-1.0); TOTAL PROTEIN, SERUM 7.6 g/dL (6.0-8.3)
[2018-08-10] MEDS ORDERED: LEVO500T2 PO (11:13)
[2018-08-11 04:03] VITALS: BP 155/65
[2018-08-11] MEDS: INSULIN HUMULIN R 100 UNIT/ML 3ML SQ SCH ×3 (06:02→14:08)
[2018-08-11 07:00] VITALS: BP 147/66
--- NOTE | 2018-08-11 08:00 | NUR ---
PATIENT UPDATE WITH ORDERS FOR DISCHARGE BUT REFUSED TO GO HOME BEC OF COMPLAINTS WITH BURNING SENSATION WITH URINATION. EXPLAINED THAT IT'S FROM THE URINARY TRACT INFECTION THAT SHE CAME IN FOR. WAS MADE AWARE ABOUT THE ANTIBIOTIC THAT WAS STARTED FOR HER. STATED THAT SHE'S SCARED TO GO HOME AND COME BACK IN LESS THAN 24 HRS. MEDICATED WITH TYLENOL FOR THE PAIN WHICH AFFORDED RELIEF. PT SLEPT OVERNIGHT, NO FURTHER COMPLAINTS VOICED OUT.
[2018-08-11] MEDS: ACETAMINOPHEN 325 MG TAB PO PRN ×2 (10:01→15:10)
[2018-08-11] MEDS: FAMOTIDINE/PF 20 MG/2 ML VIAL IV SCH (10:01)
[2018-08-11] MEDS: ENOXAPARIN SODIUM 30 MG/0.3 ML SQ SCH (10:02)
[2018-08-11 11:00] VITALS: BP 148/62
[2018-08-11] MEDS ORDERED: PHENAZOPYRIDINE HCL 200 MG TABLET PO SCH (12:30)
[2018-08-11 16:00] VITALS: BP 137/65
[2018-08-11] MEDS ORDERED: DEXTROSE 50%-WATER 50 ML DISP.SYRIN IV ONE (16:43)
--- NOTE | 2018-08-11 18:00 | NUR ---
PATIENT STATED SHE THINKS HER BLOOD SUGAR IS GOING LOW .PATIENT HAD HYPOGLYCEMIC EPISODE BEFORE DINNER OF RESULT 36. PATIENT ALERT AND AWAKE ,DENIES FEELING HYPOGLYCEMIC SYMPTOMS ..DRANK JUICE AND ATE DINNER AT TIME OF EPISODE. RECHECK OF 96. NOTIFIED SONALI RUFF ON EPISODE AFTER RESULT OF 383 GAVE 8 UNITS OF REGULAR INSULIN PER ORDER ,THEN BEFORE DINNER RESULT OF 36 ,WITH PATIENT ASYMPTOMATIC AND STATING SHE JUST NEEDS TO DRINK APPLE JUICE AND SHOULD GO UP.. GAVE RESULT TO SPEEDY OF 96 AFTER.. AFTER DINNER AND DISCHARGE INSTRUCTION TO MONITOR SUGARS AT HOME AND KEEP SNACKS AVAILABLE ..RECHECK OF 104 ASYMPTOMATIC. PATIENT STATING SHE KNOWS HERSELF AND FEELS FINE AND WILL MONITOR HER BLOOD SUGAR AT HOME . FAMILY AT BEDSIDE . INSTRUCTION TO MUSEUM ATTENDANT HER PRESCRIPTION ANTIBIOTIC FROM PHARMACY FOR UTI. PATIENT AND FAMILY MEMBER VERBILIZED UNDERSTANDING . Addendum: 08/11/18 at 1957 by OSCAR MORALES RN RN PER SONALI RUFF LONG PATIENT IS OK TO GO HOME AND ASYMPTOMATIC MAY CONT TO BE DISCHARGED ..PER PATIENT STATES " I FEEL FINE AND STATED I KNOW TO TAKE A SNACK OR APPLE JUICE IS WHAT I TAKE WHEN I FEEL MY SUGAR IS LOW,AND RIGHT NOW I FEEL GOOD TO GO HOME "
== END 2018-08-11 18:05 | disposition home or self-care (01) ==
LOC: EDH 20:41 → INTOOBSV 08-09 00:45 → EDHIP 08-09 00:45 → 3DH 08-09 15:11
PROVIDERS: ADMIT Internal Medicine; ATTEND Internal Medicine
DX: N39.0 Urinary tract infection, site not specified (principal); E11.65 Type 2 diabetes mellitus with hyperglycemia; E11.21 Type 2 diabetes mellitus with diabetic nephropathy; E11.22 Type 2 diabetes mellitus with diabetic chronic kidney disease; I12.0 Hypertensive chronic kidney disease with stage 5 chronic kidney disease or end stage renal disease; N18.6 End stage renal disease; Z99.2 Dependence on renal dialysis; I25.10 Atherosclerotic heart disease of native coronary artery without angina pectoris; F17.210 Nicotine dependence, cigarettes, uncomplicated; M19.90 Unspecified osteoarthritis, unspecified site; Z90.710 Acquired absence of both cervix and uterus; Z95.5 Presence of coronary angioplasty implant and graft; Z79.84 Long term (current) use of oral hypoglycemic drugs; Z82.49 Family history of ischemic heart disease and other diseases of the circulatory system
CPT/HCPCS: 36415 ×2; 80048; 80053; 80076; 81001; 82550; 82948 ×12; 83690; 84484; 85025; 85027; 87088; 87520; 93005; 96372 ×2; 96374; 96375 ×2; 96376; 99284; G0257; G0378 ×65; J0360; J0696 ×3; J1650 ×2; J1815 ×4; J2405 ×2; J3490 ×2; J7030 ×2; J7070; 90935

== ENCOUNTER → 2019-01-04 | Outpatient (CLI) | payer OTHER, MEDICARE ==
[~2019-01-04] MED LIST changes: -AMLO-128 PO; -ATOR20TA65 PO; -BETH5TAB PO; -CLOP75TA32 PO; -FERR210T PO; -FLUO20TA29 PO; -FURO20TA4 PO; -GLIM1TAB2 PO; +IOHEXOL 350 MG/ML 100ML INFUS..BTL IV ONE; +IOHEXOL-350 50ML VIAL IV ONE; +IOHEXOL-350 75 ML VIAL IV ONE; -LACT1CAP58 PO; -LEVE10006 PO; +LEVO500T2 PO; -MIRT7.5T11 PO; -MULT-1250 PO; -ONDA4TAB9 PO
== END | disposition home or self-care (01) ==
LOC: OIH 08:15
PROVIDERS: ATTEND Internal Medicine Cardiovascular Disease
DX: I77.811 Abdominal aortic ectasia (principal); I72.3 Aneurysm of iliac artery; I70.208 Unspecified atherosclerosis of native arteries of extremities, other extremity; K55.069 Acute infarction of intestine, part and extent unspecified; N26.1 Atrophy of kidney (terminal); N32.89 Other specified disorders of bladder; K55.032 Diffuse acute (reversible) ischemia of large intestine; I10 Essential (primary) hypertension; Z90.49 Acquired absence of other specified parts of digestive tract; Z95.9 Presence of cardiac and vascular implant and graft, unspecified
CPT/HCPCS: 74174; Q9967 ×2

== ENCOUNTER → 2019-05-22 | Outpatient (CLI) | payer OTHER, MEDICARE ==
[~2019-05-22] MED LIST changes: -IOHEXOL 350 MG/ML 100ML INFUS..BTL IV ONE; -IOHEXOL-350 50ML VIAL IV ONE; -IOHEXOL-350 75 ML VIAL IV ONE
== END | disposition home or self-care (01) ==
LOC: SHCH 10:44
PROVIDERS: ATTEND Internal Medicine Cardiovascular Disease
DX: I11.9 Hypertensive heart disease without heart failure (principal)
CPT/HCPCS: 93306; 93356

== ENCOUNTER → 2019-06-22 | Outpatient (CLI) | payer OTHER, MEDICARE | END | disposition home or self-care (01) | LOC: EDUNIT# 15:20 → RAH 15:56 | PROVIDERS: ATTEND Internal Medicine | DX: Z12.31 Encounter for screening mammogram for malignant neoplasm of breast (principal) | CPT/HCPCS: 77067 ==

== ENCOUNTER 2019-07-04 10:34 | Emergency (ER) | payer OTHER, MEDICARE ==
[2019-07-04 11:09] LABS: APPEARANCE,URINE Clear (CLEAR); BILIRUBIN,URINE Negative (NEGATIVE); COLOR,URINE Yellow (YELLOW); GLUCOSE, URINE (UA) TRACE mg/dL (NEGATIVE); KETONES,URINE Trace mg/dL (NEGATIVE); LEUKOCYTE ESTERASE ,URINE Negative (NEGATIVE); NITRATE,URINE Negative (NEGATIVE); OCCULT BLOOD,URINE Negative (NEGATIVE); PH,URINE 8.5 (5.0-8.0); PROTEIN,URINE POS 2+ mg/dL (NEGATIVE); UROBILINOGEN,URINE 0.2 mg/dL (0.2-1.0)
[2019-07-04 11:29] LABS: BASOPHILS % (AUTO) 1.2 % (0.0-5.0); EOSINOPHILS % (AUTO) 4.2 % (0.0-8.0); HEMATOCRIT 31.8 % (36-48); LYMPHOCYTES % (AUTO) 17.7 % (21.0-51.0); MEAN CORPUSCULAR HEMOGLOBIN 34.3 pg (27.0-33.0); MEAN CORPUSCULAR HGB CONC 34.3 g/dL (32.0-36.0); MONOCYTES % (AUTO) 6.9 % (3.0-13.0); NEUTROPHILS % (AUTO) 69.5 % (40.0-77.0); PLATELET COUNT (AUTO) 410 K/uL (130-400); RED BLOOD CELL COUNT(AUTO) 3.18 MIL/uL (4.00-5.50); RED CELL DISTRIBUTION WIDTH 14.3 % (11.0-15.5); WHITE BLOOD COUNT (AUTO) 8.6 K/uL (4.8-10.8)
[2019-07-04 11:30] LABS: ALBUMIN 3.9 g/dL (3.5-5.0); BILIRUBIN,TOTAL 0.3 mg/dL (0.2-1.0); CREATININE 7.1 mg/dL (0.5-1.5); POTASSIUM 3.7 mmol/L (3.5-5.1); TOTAL PROTEIN, SERUM 8.5 g/dL (6.0-8.3)
[2019-07-04 11:40] LABS: BACTERIA,URINE Rare /HPF (None Seen); RBC,URINE 0-1 /HPF (0-1); SQUAMOUS EPITHELIAL CELL,UR Rare /HPF (0-2); WBC,URINE 0-1 /HPF (0-1)
[2019-07-04] MEDS ORDERED: ONDANSETRON HCL 4 MG/2 ML VIAL ONE (11:52)
[2019-07-04] MEDS ORDERED: MORPHINE SULFATE 2 MG/ML 1ML SYG ONE (11:53)
[2019-07-04] MEDS ORDERED: TRAMADOL HCL 50 MG TABLET ONE (13:35)
== END 2019-07-04 14:12 | disposition home or self-care (01) ==
LOC: EDH 10:34
DX: R10.30 Lower abdominal pain, unspecified (principal); R33.9 Retention of urine, unspecified; I12.0 Hypertensive chronic kidney disease with stage 5 chronic kidney disease or end stage renal disease; E11.22 Type 2 diabetes mellitus with diabetic chronic kidney disease; N18.6 End stage renal disease; E78.5 Hyperlipidemia, unspecified; Z88.0 Allergy status to penicillin
CPT/HCPCS: 36415; 74176; 80053; 81001; 82150; 83690; 85025; 93005; 96374; 96375; 99285; J2405

== ENCOUNTER 2019-08-03 09:28 | Inpatient (IN) | payer OTHER, MEDICARE ==
[2019-08-03 10:28] LABS: BASOPHILS % (AUTO) 1.5 % (0.0-5.0); EOSINOPHILS % (AUTO) 0.3 % (0.0-8.0); HEMATOCRIT 33.3 % (36-48); MEAN CORPUSCULAR HEMOGLOBIN 33.6 pg (27.0-33.0); MEAN CORPUSCULAR HGB CONC 33.6 g/dL (32.0-36.0); MONOCYTES % (AUTO) 5.2 % (3.0-13.0); NEUTROPHILS % (AUTO) 74.5 % (40.0-77.0); PLATELET COUNT (AUTO) 382 K/uL (130-400); RED BLOOD CELL COUNT(AUTO) 3.33 MIL/uL (4.00-5.50); RED CELL DISTRIBUTION WIDTH 15.5 % (11.0-15.5); WHITE BLOOD COUNT (AUTO) 7.9 K/uL (4.8-10.8)
[2019-08-03 10:37] LABS: CARBON DIOXIDE 21 mmol/L (21-32); CHLORIDE 98 mmol/L (101-111); CREATININE 4.6 mg/dL (0.5-1.5); GLOMERULAR FILTR. RATE CALC 10 mL/min (>60); GLUCOSE,RANDOM 109 mg/dL (70-105); POTASSIUM 3.7 mmol/L (3.5-5.1); SODIUM SERUM 135 mmol/L (136-145); UREA NITROGEN, BLOOD 30 mg/dL (7-18)
[2019-08-03 10:43] LABS: INR 0.99 (0.85-1.15); PARTIAL THROMBOPLASTIN TIME 27.8 SEC (26.3-35.5); PROTHROMBIN TIME 10.7 SEC (9.6-11.6)
[2019-08-03 10:48] LABS: ALBUMIN 3.1 g/dL (3.5-5.0); ASPARTATE AMINOTRANSFERASE 10 U/L (10-37); BILIRUBIN,TOTAL 0.3 mg/dL (0.2-1.0); CREATINE KINASE, TOTAL 26 U/L (21-232); MYOGLOBIN 63 ng/mL (10-92); TOTAL PROTEIN, SERUM 7.4 g/dL (6.0-8.3); TROPONIN I < 0.04 ng/mL (0.00-0.06)
[2019-08-03 10:56] LABS: ALANINE AMINOTRANSFERASE < 6 U/L (12-78)
[2019-08-03] MEDS ORDERED: ONDANSETRON HCL 4 MG/2 ML VIAL ONE (11:15)
[2019-08-03] MEDS ORDERED: ACETAMINOPHEN 325 MG TAB ONE (11:15)
[2019-08-03] MEDS ORDERED: MORPHINE SULFATE 4 MG/1ML SYG ONE ×2 (11:16→15:49)
[2019-08-03] MEDS ORDERED: SODIUM CHLORIDE 0.9% 1000ML 1,000 ML IV ONE (11:18)
[2019-08-03 11:24] LABS: APPEARANCE,URINE CLOUDY (CLEAR); BILIRUBIN,URINE NEGATIVE (NEGATIVE); COLOR,URINE YELLOW (YELLOW); GLUCOSE, URINE (UA) NEGATIVE (NEGATIVE); KETONES,URINE NEGATIVE (NEGATIVE); LEUKOCYTE ESTERASE ,URINE LARGE (NEGATIVE); NITRATE,URINE NEGATIVE (NEGATIVE); OCCULT BLOOD,URINE SMALL (NEGATIVE); PH,URINE 5.5 (5.0-8.0); PROTEIN,URINE 100 mg/dL (NEGATIVE); UROBILINOGEN,URINE 0.2 mg/dL (0.2-1.0)
[2019-08-03 11:57] LABS: BACTERIA,URINE Many /HPF (None Seen); SQUAMOUS EPITHELIAL CELL,UR Rare /HPF (0-2); WBC,URINE >100 /HPF (0-1)
[2019-08-03] MEDS ORDERED: MEROPENEM 500 MG VIAL ONE (14:09)
[2019-08-03] MEDS ORDERED: LEVOFLOXACIN 500 MG/D5W 100 ML 100 ML ONE (14:09)
[2019-08-03] MEDS ORDERED: FAMOTIDINE/PF 20 MG/2 ML VIAL IV ONE (14:59)
[2019-08-03] MEDS ORDERED: ACETAMINOPHEN-CODEINE 300/30MG TAB ONE (20:33)
[2019-08-03 21:00] VITALS: BP 150/64
[2019-08-03] MEDS: LEVETIRACETAM 500 MG TABLET PO SCH (22:00)
[2019-08-04 00:29] VITALS: BP 128/75
[2019-08-04] MEDS: MEROPENEM 500 MG VIAL IVP SCH ×2 (03:46→15:56)
[2019-08-04] MEDS: ACETAMINOPHEN-CODEINE 300/30MG TAB PO PRN (04:01)
[2019-08-04 04:11] VITALS: BP 140/56
[2019-08-04 05:34] LABS: BASOPHILS % (AUTO) 1.5 % (0.0-5.0); EOSINOPHILS % (AUTO) 2.5 % (0.0-8.0); HEMATOCRIT 27.2 % (36-48); LYMPHOCYTES % (AUTO) 14.5 % (21.0-51.0); MEAN CORPUSCULAR HEMOGLOBIN 33.7 pg (27.0-33.0); MEAN CORPUSCULAR HGB CONC 33.5 g/dL (32.0-36.0); MEAN CORPUSCULAR VOLUME 100.7 fL (79-99); MONOCYTES % (AUTO) 7.7 % (3.0-13.0); NEUTROPHILS % (AUTO) 73.4 % (40.0-77.0); PLATELET COUNT (AUTO) 307 K/uL (130-400); RED CELL DISTRIBUTION WIDTH 15.8 % (11.0-15.5); WHITE BLOOD COUNT (AUTO) 9.2 K/uL (4.8-10.8)
[2019-08-04 05:45] LABS: MAGNESIUM 2.1 mg/dL (1.80-2.40); PHOSPHORUS 4.4 mg/dL (2.5-4.9); POTASSIUM 4.3 mmol/L (3.5-5.1)
[2019-08-04 08:00] VITALS: BP 156/63
[2019-08-04] MEDS: LEVETIRACETAM 500 MG TABLET PO SCH ×2 (08:41→20:44)
[2019-08-04] MEDS: FAMOTIDINE 20MG TAB 20 MG TAB PO SCH (08:41)
[2019-08-04] MEDS: ASPIRIN 81MG TAB.CHEW PO SCH (08:41)
[2019-08-04] MEDS: AMLODIPINE BESYLATE 5 MG TAB PO SCH (08:41)
[2019-08-04] MEDS: CLOPIDOGREL BISULFATE 75 MG TAB PO SCH (08:42)
[2019-08-04] MEDS: ENOXAPARIN SODIUM 30 MG/0.3 ML SQ SCH (08:42)
[2019-08-04] MEDS: HYDROMORPHONE 1 MG/1 ML AMP IV PRN ×2 (09:52→21:17)
[2019-08-04 12:49] VITALS: BP 138/59
--- NOTE | 2019-08-04 13:01 | NUR ---
DC PLAN PATIENT IN COVID UNIT PU PENDING RESULTS. CM WILL CONTINUE IA ONCE RESULTS IN TO HAVE A CLEAR DC PLAN. Addendum: 08/04/19 at 1302 by ADITYA MAGANA RN CM Amended: Links added.
--- NOTE | 2019-08-04 15:55 | NUR ---
PATIENT HAS BEEN TRANSFERRED TO THE FOURTH FLOOR. GAVE REPORT TO 4TH FLOOR RN. PATIENT COVID RESULTS NEGATIVE.
[2019-08-04 16:57] VITALS: BP 162/68
[2019-08-04 20:00] VITALS: BP 170/72
[2019-08-05] VITALS (7 sets, daily range): BP systolic 124–159; BP diastolic 54–65
[2019-08-05] MEDS: MEROPENEM 500 MG VIAL IVP SCH ×2 (02:26→17:08)
[2019-08-05] MEDS: HYDROMORPHONE 1 MG/1 ML AMP IV PRN ×3 (04:38→20:04)
[2019-08-05 06:18] LABS: HEMATOCRIT 26.9 % (36-48); LYMPHOCYTES % (AUTO) 14.2 % (21.0-51.0); MEAN CORPUSCULAR HEMOGLOBIN 33.1 pg (27.0-33.0); MEAN CORPUSCULAR HGB CONC 34.2 g/dL (32.0-36.0); MEAN CORPUSCULAR VOLUME 96.8 fL (79-99); NEUTROPHILS % (AUTO) 74.3 % (40.0-77.0); PLATELET COUNT (AUTO) 287 K/uL (130-400); RED BLOOD CELL COUNT(AUTO) 2.78 MIL/uL (4.00-5.50); RED CELL DISTRIBUTION WIDTH 15.1 % (11.0-15.5); WHITE BLOOD COUNT (AUTO) 8.4 K/uL (4.8-10.8)
[2019-08-05 06:53] LABS: ALBUMIN 2.4 g/dL (3.5-5.0); BILIRUBIN,TOTAL 0.2 mg/dL (0.2-1.0); CREATININE 3.1 mg/dL (0.5-1.5); POTASSIUM 3.2 mmol/L (3.5-5.1); TOTAL PROTEIN, SERUM 5.6 g/dL (6.0-8.3)
[2019-08-05] MEDS: FAMOTIDINE 20MG TAB 20 MG TAB PO SCH (08:48)
[2019-08-05] MEDS: LEVETIRACETAM 500 MG TABLET PO SCH ×2 (08:48→20:02)
[2019-08-05] MEDS: CLOPIDOGREL BISULFATE 75 MG TAB PO SCH (09:34)
[2019-08-05] MEDS: ASPIRIN 81MG TAB.CHEW PO SCH ×2 (09:34→17:11)
[2019-08-05] MEDS: ACETAMINOPHEN-CODEINE 300/30MG TAB PO PRN ×2 (10:24→17:15)
--- NOTE | 2019-08-05 11:59 | NUR ---
DCP CM spoke to pt daughter discussed dc plans. Pt is assist with ADL's, lives at home alone, daughter lives close by and visits w/patient often. Pt has a provider 26hrs/wk, cane, walker, wheelchair, bedside commode, shower chair, [facility] 2x/wk, goes to [facility], uses Med transport as needed. Denies any other equipments/services. Feels safe to go back home, daughter able to assist with transportation and needs as necessary. DC plan to home once stable. CM to cont to follow up. Addendum: 08/05/19 at 1202 by NIC OLIVA LVN CM Amended: Links added.
[2019-08-05] MEDS: AMLODIPINE BESYLATE 5 MG TAB PO SCH (17:09)
[2019-08-05] MEDS: ENOXAPARIN SODIUM 30 MG/0.3 ML SQ SCH (17:12)
[2019-08-06] MEDS: MEROPENEM 500 MG VIAL IVP SCH ×2 (02:49→13:40)
[2019-08-06 03:32] VITALS: BP 125/63
[2019-08-06 04:37] LABS: EOSINOPHILS % (AUTO) 2.2 % (0.0-8.0); HEMATOCRIT 28.5 % (36-48); LYMPHOCYTES % (AUTO) 22.6 % (21.0-51.0); MEAN CORPUSCULAR HEMOGLOBIN 33.9 pg (27.0-33.0); MEAN CORPUSCULAR HGB CONC 34.7 g/dL (32.0-36.0); MEAN CORPUSCULAR VOLUME 97.6 fL (79-99); MONOCYTES % (AUTO) 10.4 % (3.0-13.0); NEUTROPHILS % (AUTO) 63.2 % (40.0-77.0); PLATELET COUNT (AUTO) 290 K/uL (130-400); RED BLOOD CELL COUNT(AUTO) 2.92 MIL/uL (4.00-5.50); RED CELL DISTRIBUTION WIDTH 15.4 % (11.0-15.5); WHITE BLOOD COUNT (AUTO) 6.9 K/uL (4.8-10.8)
[2019-08-06] MEDS: ACETAMINOPHEN-CODEINE 300/30MG TAB PO PRN ×3 (04:40→18:15)
[2019-08-06 04:49] LABS: ALBUMIN 2.6 g/dL (3.5-5.0); ASPARTATE AMINOTRANSFERASE 9 U/L (10-37); BILIRUBIN,TOTAL 0.3 mg/dL (0.2-1.0); CARBON DIOXIDE 33 mmol/L (21-32); CHLORIDE 98 mmol/L (101-111); CREATININE 2.7 mg/dL (0.5-1.5); GLOMERULAR FILTR. RATE CALC 18 mL/min (>60); GLUCOSE,RANDOM 98 mg/dL (70-105); POTASSIUM 3.3 mmol/L (3.5-5.1); SODIUM SERUM 137 mmol/L (136-145); TOTAL PROTEIN, SERUM 6.1 g/dL (6.0-8.3); UREA NITROGEN, BLOOD 10 mg/dL (7-18)
[2019-08-06 04:55] LABS: ALANINE AMINOTRANSFERASE < 6 U/L (12-78)
[2019-08-06 07:52] VITALS: BP 135/60
[2019-08-06] MEDS: FAMOTIDINE 20MG TAB 20 MG TAB PO SCH (08:04)
[2019-08-06] MEDS: LEVETIRACETAM 500 MG TABLET PO SCH ×2 (08:04→22:26)
[2019-08-06] MEDS: CLOPIDOGREL BISULFATE 75 MG TAB PO SCH (08:04)
[2019-08-06] MEDS: AMLODIPINE BESYLATE 5 MG TAB PO SCH (08:04)
[2019-08-06] MEDS: ASPIRIN 81MG TAB.CHEW PO SCH (08:05)
[2019-08-06] MEDS: HYDROMORPHONE 1 MG/1 ML AMP IV PRN ×3 (08:06→22:37)
[2019-08-06] MEDS: ENOXAPARIN SODIUM 30 MG/0.3 ML SQ SCH (08:06)
[2019-08-06 11:45] VITALS: BP 130/58
[2019-08-06 16:00] VITALS: BP 114/54
--- NOTE | 2019-08-06 18:45 | NUR ---
CM NOTE/HNR CM spoke to pt regarding d/c planning. Explained need for fpc IV abx. Pt is agreeable to short term snf/rehab placement. Offered in network choices. CM obtained consent for MAURA to [facility]. CM to fax referral and follow up.
[2019-08-06] MEDS ORDERED: MAG HYDROX/AL HYDROX/SIMETH ES 30 ML SUSP UDCUP PO SCH (19:30)
[2019-08-06 20:00] VITALS: BP 121/59
[2019-08-07] VITALS: BP 132/66
[2019-08-07] MEDS: MEROPENEM 500 MG VIAL IVP SCH ×2 (02:17→13:14)
[2019-08-07] MEDS: ACETAMINOPHEN-CODEINE 300/30MG TAB PO PRN ×3 (02:17→20:45)
[2019-08-07 04:00] VITALS: BP 132/65
[2019-08-07] MEDS: HYDROMORPHONE 1 MG/1 ML AMP IV PRN ×3 (05:41→18:05)
[2019-08-07 05:45] LABS: EOSINOPHILS % (AUTO) 1.8 % (0.0-8.0); HEMATOCRIT 27.4 % (36-48); LYMPHOCYTES % (AUTO) 16.2 % (21.0-51.0); MEAN CORPUSCULAR HEMOGLOBIN 33.1 pg (27.0-33.0); MEAN CORPUSCULAR HGB CONC 33.9 g/dL (32.0-36.0); MEAN CORPUSCULAR VOLUME 97.5 fL (79-99); MONOCYTES % (AUTO) 8.3 % (3.0-13.0); PLATELET COUNT (AUTO) 263 K/uL (130-400); RED BLOOD CELL COUNT(AUTO) 2.81 MIL/uL (4.00-5.50); RED CELL DISTRIBUTION WIDTH 15.5 % (11.0-15.5); WHITE BLOOD COUNT (AUTO) 8.8 K/uL (4.8-10.8)
[2019-08-07 06:19] LABS: ALBUMIN 2.5 g/dL (3.5-5.0); ASPARTATE AMINOTRANSFERASE 10 U/L (10-37); BILIRUBIN,TOTAL 0.2 mg/dL (0.2-1.0); CARBON DIOXIDE 31 mmol/L (21-32); CHLORIDE 97 mmol/L (101-111); CREATININE 4.1 mg/dL (0.5-1.5); GLOMERULAR FILTR. RATE CALC 11 mL/min (>60); GLUCOSE,RANDOM 100 mg/dL (70-105); POTASSIUM 3.6 mmol/L (3.5-5.1); SODIUM SERUM 136 mmol/L (136-145); UREA NITROGEN, BLOOD 21 mg/dL (7-18)
[2019-08-07 06:24] LABS: ALANINE AMINOTRANSFERASE < 6 U/L (12-78)
[2019-08-07 07:42] VITALS: BP 149/67
--- NOTE | 2019-08-07 08:15 | NUR ---
AM ASSESSMENT PT LAYING IN BED. BEDREST. CONTACT ISOLATION. A/O X 3. NO SOB. NO DISTRESS NOTED. DENIES CHEST PAIN OR DISCOMFORT. DENIES PALPITATIONS. C/O OF BACK PAIN. PAIN MEDICATION TO BE GIVEN. TELE: SR. DENIES N/V AND/OR DIARRHEA. ESRD, HD TTS. JANIE AV FISTULA, (+) THRILL/(+) BRUIT. LT ARM PRECAUTIONS IN PLACE. INSTRUCTED TO CALL FOR ASSISTANCE. CALL DANAE W/IN REACH.
[2019-08-07] MEDS: FAMOTIDINE 20MG TAB 20 MG TAB PO SCH (08:27)
[2019-08-07] MEDS: CLOPIDOGREL BISULFATE 75 MG TAB PO SCH (08:28)
[2019-08-07] MEDS: LEVETIRACETAM 500 MG TABLET PO SCH ×2 (08:28→20:44)
[2019-08-07] MEDS: ASPIRIN 81MG TAB.CHEW PO SCH (08:28)
[2019-08-07] MEDS: AMLODIPINE BESYLATE 5 MG TAB PO SCH (08:28)
[2019-08-07] MEDS: ENOXAPARIN SODIUM 30 MG/0.3 ML SQ SCH (08:29)
[2019-08-07 11:15] VITALS: BP 161/69
[2019-08-07] MEDS ORDERED: IOHEXOL-350 75 ML VIAL IV ONE ×2 (12:01→12:43)
[2019-08-07] MEDS ORDERED: IOHEXOL-350 50ML VIAL IV ONE (12:43)
[2019-08-07 16:00] VITALS: BP 139/65
[2019-08-07 20:44] VITALS: BP 149/72
[2019-08-08] VITALS (7 sets, daily range): BP systolic 129–158; BP diastolic 60–72
[2019-08-08] MEDS: MEROPENEM 500 MG VIAL IVP SCH ×2 (02:22→14:14)
--- NOTE | 2019-08-08 07:30 | NUR ---
AM ASSESSMENT PT LAYING IN BED, RESTING. A/O X 3. NO SOB. NO DISTRESS NOTED. DENIES CHEST PAIN OR DISCOMFORT. C/O BACK PAIN, CHRONIC. PAIN MEDICATION TO BE GIVEN. TELE: SR. DENIES N/V AND/OR DIARRHEA. PT HAVE HD TODAY. LT AV ACCESS (+) BRUIT/(+)THRILL. LT ARM PRECAUTIONS IN PLACE. BEDREST. INSTRUCTED TO CALL FOR ASSISTANCE. CALL DANAE W/IN REACH.
[2019-08-08] MEDS: HYDROMORPHONE 1 MG/1 ML AMP IV PRN ×3 (08:00→20:20)
[2019-08-08] MEDS: ACETAMINOPHEN-CODEINE 300/30MG TAB PO PRN ×2 (10:18→18:27)
--- NOTE | 2019-08-08 13:30 | NUR ---
HEMODIALYSIS 1 L REMOVED DURING HD. TOLERATED HD WELL. V/S WNL.
[2019-08-08] MEDS: FAMOTIDINE 20MG TAB 20 MG TAB PO SCH (14:11)
[2019-08-08] MEDS: AMLODIPINE BESYLATE 5 MG TAB PO SCH (14:12)
[2019-08-08] MEDS: LEVETIRACETAM 500 MG TABLET PO SCH ×2 (14:12→20:19)
[2019-08-08] MEDS: CLOPIDOGREL BISULFATE 75 MG TAB PO SCH (14:13)
[2019-08-08] MEDS: ASPIRIN 81MG TAB.CHEW PO SCH (14:13)
[2019-08-08] MEDS: ENOXAPARIN SODIUM 30 MG/0.3 ML SQ SCH (14:23)
--- NOTE | 2019-08-08 14:37 | NUR ---
CM/SNF APPROVAL PER KATHERYN, PATIENT APPROVED FOR HNR. PATIENT PENDING COVID TESTING RESULTS. HALIMA CARNEY, PRIMARY NURSE, AWARE OF APPROVAL.
[2019-08-09] MEDS: ACETAMINOPHEN-CODEINE 300/30MG TAB PO PRN ×3 (01:01→18:09)
[2019-08-09] MEDS: MEROPENEM 500 MG VIAL IVP SCH ×2 (02:24→13:50)
[2019-08-09 03:53] VITALS: BP 133/50
--- NOTE | 2019-08-09 05:29 | NUR ---
STATUS Pt slept fairly well.Kept comfortable.No distress noted.
[2019-08-09 06:49] LABS: ALBUMIN 2.6 g/dL (3.5-5.0); BILIRUBIN,TOTAL 0.3 mg/dL (0.2-1.0); CREATININE 3.5 mg/dL (0.5-1.5); POTASSIUM 4.1 mmol/L (3.5-5.1); TOTAL PROTEIN, SERUM 6.6 g/dL (6.0-8.3)
[2019-08-09 07:35] LABS: BASOPHILS % (AUTO) 1.5 % (0.0-5.0); EOSINOPHILS % (AUTO) 5.2 % (0.0-8.0); HEMATOCRIT 30.5 % (36-48); LYMPHOCYTES % (AUTO) 22.4 % (21.0-51.0); MEAN CORPUSCULAR HEMOGLOBIN 33.2 pg (27.0-33.0); MEAN CORPUSCULAR HGB CONC 33.8 g/dL (32.0-36.0); MEAN CORPUSCULAR VOLUME 98.4 fL (79-99); MONOCYTES % (AUTO) 17.2 % (3.0-13.0); NEUTROPHILS % (AUTO) 53.4 % (40.0-77.0); PLATELET COUNT (AUTO) 286 K/uL (130-400); RED CELL DISTRIBUTION WIDTH 15.4 % (11.0-15.5); WHITE BLOOD COUNT (AUTO) 6.2 K/uL (4.8-10.8)
[2019-08-09] MEDS: HYDROMORPHONE 1 MG/1 ML AMP IV PRN ×2 (08:29→16:53)
[2019-08-09] MEDS: ASPIRIN 81MG TAB.CHEW PO SCH (08:30)
[2019-08-09] MEDS: AMLODIPINE BESYLATE 5 MG TAB PO SCH (08:30)
[2019-08-09] MEDS: CLOPIDOGREL BISULFATE 75 MG TAB PO SCH (08:30)
[2019-08-09] MEDS: LEVETIRACETAM 500 MG TABLET PO SCH ×2 (08:31→21:53)
[2019-08-09] MEDS: ENOXAPARIN SODIUM 30 MG/0.3 ML SQ SCH (08:31)
[2019-08-09 08:59] VITALS: BP 161/69
[2019-08-09] MEDS: FAMOTIDINE 20MG TAB 20 MG TAB PO SCH (09:00)
[2019-08-09 12:46] VITALS: BP 145/68
--- NOTE | 2019-08-09 13:12 | NUR ---
CM NOTE/DCP CHANGE CALL FROM MICHELLE ZHU [phone], POA AND DAUGHTER OF PATIENT. PER POA, DOES NOT WANT HER MOTHER GOING TO SNF AND WANTS HER TO GO HOME WITH [facility] AND IV ABT. DR SHANNON MADE AWARE, PER MD, OK FOR [facility] IV DAILY X10 DAYS. MARUA COMPLETED FOR [facility] AND ANY PHARMACY IN NETWORK. CLINICAL PACKET ALONG WITH RX FAXED TO [facility], PENDING PICC LINE TODAY. CM TO FOLLOW UP ACCORDINGLY. PRIMARY NURSE, HAMLET CARNEY, MADE AWARE. POA MADE AWARE OF DCP CHANGE FROM [facility] TO [facility] WITH IV ABT.
--- NOTE | 2019-08-09 13:25 | NUR ---
PT'S DAUGHTER WITH [facility] GAVE PHONE CONSENT FOR PICC LINE PLACEMENT, PT ALSO STATED UNDERSTANDING OF NEED FOR PICC LINE FOR THE 10 DAYS OF IV ABX.
[2019-08-09 14:29] LABS: INR 0.89 (0.85-1.15); PROTHROMBIN TIME 9.7 SEC (9.6-11.6)
--- NOTE | 2019-08-09 15:09 | NUR ---
CM NOTE/DCP HH CHANGE BRITTANY AT [facility] CALLED ME AND STATED THEY CANNOT ACCEPT REFERRAL D/T NOT ENOUGH STAFF. [facility] CALLED, [facility] FILLED FOR [facility]. [facility]URANCE IN NETWORK. CLINICAL PACKET FAXED AND CONFIRMED RECEIVED. PATIENT PENDING PICC LINE, POSSIBLE DC HOME 08/10/2019. CM TO FOLLOW UP ACCORDINGLY. HAMLET CARNEY, PRIMARY NURSE, MADE AWARE. SPEEDY LYON MADE AWARE.
[2019-08-09 16:00] VITALS: BP 139/67
--- NOTE | 2019-08-09 16:00 | NUR ---
PT WAS NOTED TO HAVE BLEEDING FROM LEFT AV FISTULA; I APPLIED PRESSURE FOR 5 MINUTES AND APPLIED A PRESSURE DRESSING; NO FURTHER BLEEDING NOTED; I DID HAVE THE DIALYSIS NURSE ASSESS THE SITE AND HE SAID APPLY PRESSURE AND KEEP ASSESSING. PT STATES SHE FEELS FINE.
--- NOTE | 2019-08-09 16:29 | NUR ---
NO FURTHER BLEEDING NOTED FROM LEFT ARM AV FISTULA; PRESSURE DRESSING REMAINS IN PLACE;
[2019-08-09 16:54] LABS: HEMATOCRIT 34.3 % (36-48)
--- NOTE | 2019-08-09 20:09 | NUR ---
pt had 3 episodes this afternoon of bleeding from her av fistula on left arm; humble be had ed nurse apply a clot forming dressing and then compression wrap that seemed to work the best this was at 1830; i did call AJ equal employment opportunity officer for the hospitalist and informed him of the bleeding episodes and he stated to get an H&H Q6hrs x3 and call dr llamas her turbine measurements engineer if it doesn't stop bleeding and to stop her blood thinners. pt is c/o pain to her back so i have medicated her with first dilaudid and pt still c/o pain so i then gave her tylenol #3; report given to priscila velazquez and she helped wrap another pressure dressing on av fistula site;
[2019-08-09 20:49] VITALS: BP 133/65
--- NOTE | 2019-08-09 22:30 | NUR ---
UNSUCCESSFUL ATTEMPT AT PICC LINE PLACEMENT TO RIGHT BASILIC, AND BRACHIAL VEIN X 3 ATTEMPTS. I WAS ABLE TO ACCESS VEINS, BUT THEY VERY WOBBLY VEINS, NO SUBCU TO STEADY VEINS. GUIDE WIRE UNABLE TO FEED FORWARD. WILL CONSULT ANOTHER PICC NURSE TO ATTEMPT TOMORROW. ROMMEL ALY AWARE. Addendum: 08/09/19 at 2242 by BRITTANY KOROMA RN RN LEFT ARM RESTRICTED DUE TO AV FISTULA.
[2019-08-09] MEDS ORDERED: HYDROMORPHONE HCL 0.5 MG/0.5 ML ML ONE (22:32)
[2019-08-10 00:35] VITALS: BP 147/88
[2019-08-10] MEDS: MEROPENEM 500 MG VIAL IVP SCH ×2 (01:51→15:32)
[2019-08-10 04:00] VITALS: BP 139/59
[2019-08-10] MEDS ORDERED: FAMO20TA8 PO (06:54)
[2019-08-10] MEDS ORDERED: LEVE-43 PO (06:54)
[2019-08-10] MEDS ORDERED: ASPI-1005 PO (06:54)
[2019-08-10] MEDS ORDERED: AMLO5TAB4 PO (06:54)
[2019-08-10] MEDS ORDERED: CLOP75TA14 PO (06:54)
[2019-08-10] MEDS ORDERED: HYDROMORPHONE HCL 0.5 MG/0.5 ML ML ONE (06:58)
[2019-08-10 08:30] VITALS: BP 145/75
[2019-08-10] MEDS: ENOXAPARIN SODIUM 30 MG/0.3 ML SQ SCH (09:00)
--- NOTE | 2019-08-10 09:06 | NUR ---
CM NOTE/[facility] PER SENDY AT , REFERRAL RECEIVED AND UNDER PROCESS, CM TO FOLLOW UP ACCORDINGLY, PRIMARY NURSE AWARE.
[2019-08-10] MEDS ORDERED: HYDROMORPHONE HCL 0.5 MG/0.5 ML ML IVP PRN (09:15)
[2019-08-10 09:20] LABS: HEMATOCRIT 22.7 % (36-48)
--- NOTE | 2019-08-10 11:26 | NUR ---
CM NOTE/HH PER S[facility], PATIENT APPROVED AND ACCEPTED. GEORGE CARNEY, PRIMARY NURSE, MADE AWARE. DISCHARGE ORDER IN [facility], PENDING TO LEAVE.
[2019-08-10 12:04] VITALS: BP 120/59
--- NOTE | 2019-08-10 14:20 | NUR ---
PICC LINE INSERTED TO RT UPPER ARM, WITH DIFFICULTY
[2019-08-10] MEDS: FAMOTIDINE 20MG TAB 20 MG TAB PO SCH (15:32)
[2019-08-10] MEDS: LEVETIRACETAM 500 MG TABLET PO SCH (15:32)
[2019-08-10] MEDS: ASPIRIN 81MG TAB.CHEW PO SCH (15:32)
[2019-08-10] MEDS: CLOPIDOGREL BISULFATE 75 MG TAB PO SCH (15:33)
[2019-08-10] MEDS: AMLODIPINE BESYLATE 5 MG TAB PO SCH (15:33)
[2019-08-10 16:30] VITALS: BP 132/68
--- NOTE | 2019-08-10 18:55 | NUR ---
PATIENT DISCHARGED PATIENT DISCHARGED, IV DISCONTINUED, CATHLON INTACT BLEEDING CONTROLLED. PATIENT TOLERATED WITHOUT INCIDENT. REPORT GIVEN TO HERB WITH [facility]. DAUGHTER CALLED FOR TRANSPORTATION.
== END 2019-08-10 19:30 | disposition home health service (06) | DRG 689 ==
LOC: EDH 09:28 → EDHIP 16:14 → 2DH 22:23 → 4DH 08-04 15:59
PROVIDERS: ADMIT Internal Medicine; ATTEND Internal Medicine
PROC: 5A1D70Z Performance of Urinary Filtration, Intermittent, Less than 6 Hours Per Day (ICD-10-PCS; 2019-08-04)
PROC: 5A1D70Z Performance of Urinary Filtration, Intermittent, Less than 6 Hours Per Day (ICD-10-PCS; 2019-08-05)
PROC: 5A1D70Z Performance of Urinary Filtration, Intermittent, Less than 6 Hours Per Day (ICD-10-PCS; 2019-08-08)
PROC: 02HV33Z Insertion of Infusion Device into Superior Vena Cava, Percutaneous Approach (ICD-10-PCS; principal; 2019-08-09)
PROC: B548ZZA Ultrasonography of Superior Vena Cava, Guidance (ICD-10-PCS; 2019-08-09)
PROC: 5A1D70Z Performance of Urinary Filtration, Intermittent, Less than 6 Hours Per Day (ICD-10-PCS; 2019-08-10)
DX: N30.90 Cystitis, unspecified without hematuria (principal); N18.6 End stage renal disease; Z16.24 Resistance to multiple antibiotics; I12.0 Hypertensive chronic kidney disease with stage 5 chronic kidney disease or end stage renal disease; B96.20 Unspecified Escherichia coli [E. coli] as the cause of diseases classified elsewhere; N31.9 Neuromuscular dysfunction of bladder, unspecified; K52.9 Noninfective gastroenteritis and colitis, unspecified; E11.22 Type 2 diabetes mellitus with diabetic chronic kidney disease; D63.1 Anemia in chronic kidney disease; E78.5 Hyperlipidemia, unspecified; G40.909 Epilepsy, unspecified, not intractable, without status epilepticus; M19.90 Unspecified osteoarthritis, unspecified site; M54.5 Low back pain; R54 Age-related physical debility; I25.10 Atherosclerotic heart disease of native coronary artery without angina pectoris; Z20.828 Contact with and (suspected) exposure to other viral communicable diseases; R33.9 Retention of urine, unspecified; Z95.820 Peripheral vascular angioplasty status with implants and grafts; Z99.2 Dependence on renal dialysis; Z95.5 Presence of coronary angioplasty implant and graft; Z90.710 Acquired absence of both cervix and uterus; Z87.440 Personal history of urinary (tract) infections; Z86.19 Personal history of other infectious and parasitic diseases; Z83.3 Family history of diabetes mellitus; Z82.49 Family history of ischemic heart disease and other diseases of the circulatory system; Z79.84 Long term (current) use of oral hypoglycemic drugs; Z88.1 Allergy status to other antibiotic agents; Z88.0 Allergy status to penicillin; Z80.9 Family history of malignant neoplasm, unspecified
CPT/HCPCS: 36415; 71045; 74176; 75635; 80048; 80053; 81001; 82550; 82948; 83605; 83735; 83874; 84100; 84145; 84484; 85014; 85018; 85025; 85610; 85730; 87040; 87077; 87088; 87186; 87635; 90935; 93005; 93975; 99291; C1894; G0378; J1170; J1650; J1956; J2185; J2270; J2405; J3490; J7030; Q9967; U0003

== ENCOUNTER 2019-09-16 09:26 | Inpatient (IN) | payer OTHER, MEDICARE ==
[~2019-09-16] VITALS: Ht 144.8 cm; Wt 29.7 kg
[~2019-09-16 09:26] MED LIST changes: +AMLO5TAB4 PO; +ASPI-1005 PO; +CLOP75TA14 PO; +FAMO20TA8 PO; +LEVE-43 PO
[2019-09-16] MEDS ORDERED: ONDANSETRON HCL 4 MG/2 ML VIAL ONE (09:54)
[2019-09-16] MEDS ORDERED: MORPHINE SULFATE 2 MG/ML 1ML SYG ONE ×2 (09:55→10:35)
[2019-09-16 10:13] LABS: BASOPHILS % (AUTO) 0.4 % (0.0-5.0); EOSINOPHILS % (AUTO) 0.1 % (0.0-8.0); HEMATOCRIT 28.7 % (36-48); LYMPHOCYTES % (AUTO) 19.5 % (21.0-51.0); MEAN CORPUSCULAR HEMOGLOBIN 30.8 pg (27.0-33.0); MEAN CORPUSCULAR HGB CONC 32.8 g/dL (32.0-36.0); MEAN CORPUSCULAR VOLUME 94.1 fL (79-99); NEUTROPHILS % (AUTO) 76.2 % (40.0-77.0); NUCLEATED RED BLOOD CELLS 0.2 % (0.0-0.19); PLATELET COUNT (AUTO) 501 K/uL (130-400); RED BLOOD CELL COUNT(AUTO) 3.05 MIL/uL (4.00-5.50); RED CELL DISTRIBUTION WIDTH 16.5 % (11.0-15.5); WHITE BLOOD COUNT (AUTO) 10.6 K/uL (4.8-10.8)
[2019-09-16 10:33] LABS: ALBUMIN 2.5 g/dL (3.5-5.0); BILIRUBIN,TOTAL 0.5 mg/dL (0.2-1.0); POTASSIUM 5.6 mmol/L (3.5-5.1); TOTAL PROTEIN, SERUM 6.5 g/dL (6.0-8.3)
[2019-09-16] MEDS ORDERED: ZOSYN 3.375GM+NS 50ML 50 ML IV ONE (10:33)
[2019-09-16] MEDS ORDERED: DOXYCYCLINE 100MG+NS 250ML 250 ML IV ONE (10:46)
[2019-09-16 10:49] LABS: CREATININE 8.8 mg/dL (0.5-1.5)
[2019-09-16 11:26] LABS: ABG BASE EXCESS -18.5 mmol/L (-2.0-3.0); ABG HCO3 8.4 mmol/L (21.0-28.0); ABG OXYGEN SATURATION 86.3 % (95.0-99.0); ABG PCO2 24 mmHg (32-45)
[2019-09-16 13:26] LABS: BILIRUBIN,URINE Negative (NEGATIVE); COLOR,URINE Yellow (YELLOW); GLUCOSE, URINE (UA) Negative (NEGATIVE); KETONES,URINE Trace mg/dL (NEGATIVE); LEUKOCYTE ESTERASE ,URINE Large (NEGATIVE); NITRATE,URINE Negative (NEGATIVE); OCCULT BLOOD,URINE Large (NEGATIVE); PH,URINE 5.5 (5.0-8.0); PROTEIN,URINE 300 mg/dL (NEGATIVE)
[2019-09-16 13:39] LABS: APPEARANCE,URINE CLOUDY (CLEAR)
[2019-09-16 13:49] LABS: BACTERIA,URINE Many /HPF (None Seen); RBC,URINE 51-100 /HPF (0-1); SQUAMOUS EPITHELIAL CELL,UR Few /HPF (0-2); WBC,URINE >100 /HPF (0-1)
[2019-09-16] MEDS ORDERED: DEXTROSE 50%-WATER 50 ML DISP.SYRIN IV ONE (14:04)
[2019-09-16] MEDS ORDERED: SODIUM BICARB 50MEQ 50ML VIAL ONE (14:04)
[2019-09-16] MEDS ORDERED: CALCIUM GLUCONATE 1 GM/10 ML VIAL IV ONE (14:04)
[2019-09-16] MEDS ORDERED: INSULIN HUMULIN R 100 UNIT/ML 3ML ONE (14:06)
[2019-09-16] MEDS ORDERED: SODIUM CHLORIDE 0.9% 50 ML IV ONE (14:08)
[2019-09-16] MEDS ORDERED: VANCOMYCIN 1GM+NS 250ML 250 ML IV ONE (16:19)
[2019-09-16] MEDS: INSULIN HUMULIN R 100 UNIT/ML 3ML SQ SCH ×2 (16:30→23:52)
[2019-09-16 17:20] VITALS: BP 125/76
--- NOTE | 2019-09-16 17:45 | NUR ---
MO RODRIGUEZ FROM [facility] CALLED, STATED THAT ANA IS INVENTORY CONTROL ASSOCIATE AND SHE WILL ARRIVE TO DO DIALYSIS IN 2 HOURS.
--- NOTE | 2019-09-16 18:00 | NUR ---
RECEIVED PATIENT FROM EMERGENCY ROOM. PATIENT IS AAOX3. MALNUTRITION AND STAGE II PRESSURE ULCER ON THE SACRAL AREA, PROBABLY FROM PREVIOUS ADMITION TO [facility]. PATIENT VERBALIZES PAIN 08/24.
[2019-09-16 19:00] VITALS: BP 99/47
--- NOTE | 2019-09-16 20:15 | NUR ---
CRITICIAL LAB LACTIC ACID Lactic Acid of 2.3, notified Dr. Lobato, no new orders received at this time, continue lab draws per protocol. Pt is DNR and awaiting hospice admission tomorrow. Pt is being dialyzed at this time as well.
[2019-09-16 23:00] VITALS: BP 126/44
[2019-09-16] MEDS: MORPHINE SULFATE 2 MG/ML 1ML SYG IVP PRN (23:01)
[2019-09-16] MEDS: HEPARIN SODIUM 5000UNIT/ML 1ML VIAL SQ SCH (23:56)
[2019-09-17 03:00] VITALS: BP 142/72
[2019-09-17] MEDS: INSULIN HUMULIN R 100 UNIT/ML 3ML SQ SCH ×4 (05:27→21:00)
[2019-09-17 06:52] LABS: BASOPHILS % (AUTO) 0.1 % (0.0-5.0); HEMATOCRIT 25.3 % (36-48); MEAN CORPUSCULAR HEMOGLOBIN 31.2 pg (27.0-33.0); MEAN CORPUSCULAR HGB CONC 34.4 g/dL (32.0-36.0); MEAN CORPUSCULAR VOLUME 90.7 fL (79-99); MONOCYTES % (AUTO) 2.3 % (3.0-13.0); PLATELET COUNT (AUTO) 345 K/uL (130-400); RED BLOOD CELL COUNT(AUTO) 2.79 MIL/uL (4.00-5.50); RED CELL DISTRIBUTION WIDTH 16.2 % (11.0-15.5); WHITE BLOOD COUNT (AUTO) 11.9 K/uL (4.8-10.8)
[2019-09-17 07:43] VITALS: BP 125/68
[2019-09-17 08:00] LABS: CREATININE 4.7 mg/dL (0.5-1.5); POTASSIUM 4.3 mmol/L (3.5-5.1)
[2019-09-17] MEDS: HEPARIN SODIUM 5000UNIT/ML 1ML VIAL SQ SCH ×3 (08:57→21:00)
[2019-09-17] MEDS: MORPHINE SULFATE 2 MG/ML 1ML SYG IVP PRN ×3 (10:00→21:50)
[2019-09-17 11:33] VITALS: BP 131/75
[2019-09-17 15:23] VITALS: BP_SYST 125; BP_SYST 127; BP_DIAS 68
--- NOTE | 2019-09-17 18:30 | NUR ---
DARIEN-SPOKE TO DAUGHTER MICHELLE ZHU FOR DC PLANNING STATES PATIENT LIVES WITH HER IN AN APARTMENT AND IS HER MOMS PROVIDER,WITH HER AT ALL TIMES;, HAS A ROLLING WALKER BUT NO WHEELCHAIR, AND A SHOWER CHAIR. HAS BEEN ON HD ALMOST THREE YEARS, WAS TAKEN BY MED TRANSPORTTO THE HD CLNIC BUT WOULD REFUSE TO GO IN, AND THEN DAUGHTER WOULD BE CALLED TO COME PICK HER UP. STATES VERY DIFFICULT TO TRANSFER STATES THEY ALREADY HAVE AN EXISTING PLAN WITH [facility]- THIS IS LAST HD AND THEN THE EQUIPMENT WILL BE SET UP AT THE [facility] TO [facility] CAR SALES REPRESENTATIVE; THIS - UNABLE TO CONFIRM WHO IS ASSIGNED TO PATIENT. EXPLAINED TO JOHN LYON, PLACE ORDER FOR HOSPICE UNDER HER NAME OR [facility] ORDER ENTERED Addendum: 09/18/19 at 0911 by BLAIR LUNDY RN CM Amended: Links added.
[2019-09-17 19:49] VITALS: BP 123/102
[2019-09-17 23:47] VITALS: BP 142/52
[2019-09-18] MEDS ORDERED: ACETAMINOPHEN 325 MG TAB ONE (01:19)
[2019-09-18] MEDS: MORPHINE SULFATE 2 MG/ML 1ML SYG IVP PRN ×2 (03:36→21:50)
[2019-09-18 03:56] VITALS: BP 122/54
[2019-09-18] MEDS: INSULIN HUMULIN R 100 UNIT/ML 3ML SQ SCH ×4 (06:08→21:00)
--- NOTE | 2019-09-18 06:36 | NUR ---
pt currently resting in bed and able to sleep after receiving second dose of morphine; pt removed nasal cannula around midnight and stated she did not want to wear the device; O2 sats were assessed, pt maintained 97-99% on room air; pt instructed to contact nursing staff should she feel short of breath and/or difficulty breathing; pt verbalized understanding; no distress noted at this time. ROMMEL Aden
[2019-09-18 07:00] VITALS: BP 133/52
[2019-09-18] MEDS: HEPARIN SODIUM 5000UNIT/ML 1ML VIAL SQ SCH ×3 (09:00→21:00)
--- NOTE | 2019-09-18 09:19 | NUR ---
CALL TO [facility] BY CM, AWAITING CALL BACK FOR ARRANGEMENTS
[2019-09-18] MEDS: ACETAMINOPHEN 325 MG TAB PO PRN (09:41)
[2019-09-18 10:25] LABS: HEMATOCRIT 22.4 % (36-48); MEAN CORPUSCULAR HEMOGLOBIN 30.8 pg (27.0-33.0); MEAN CORPUSCULAR HGB CONC 33.9 g/dL (32.0-36.0); MEAN CORPUSCULAR VOLUME 90.7 fL (79-99); PLATELET COUNT (AUTO) 297 K/uL (130-400); RED BLOOD CELL COUNT(AUTO) 2.47 MIL/uL (4.00-5.50); RED CELL DISTRIBUTION WIDTH 16.3 % (11.0-15.5); WHITE BLOOD COUNT (AUTO) 8.6 K/uL (4.8-10.8)
[2019-09-18 10:38] LABS: CREATININE 5.7 mg/dL (0.5-1.5)
[2019-09-18 11:00] VITALS: BP 146/64
[2019-09-18] MEDS: LEVOFLOXACIN 500 MG/D5W 100 ML 100 ML IV SCH ×2 (11:30→12:52)
[2019-09-18 11:42] LABS: LYMPHOCYTES % (MANUAL) 16 % (22-44); MAN.DIFF COMMENT-IMPRESSION MANUAL DIFFERENTIAL; MONOCYTES % (MANUAL) 2 % (2-9); PLATELET MORPHOLOGY COMMENT ADEQUATE; SEGMENTED NEUTROPHILS % 82 % (40-70)
[2019-09-18 16:00] VITALS: BP 133/66
[2019-09-18 20:00] VITALS: BP 131/61
[2019-09-18] MEDS: LEVETIRACETAM 500 MG TABLET PO SCH (21:08)
[2019-09-19] VITALS (7 sets, daily range): BP systolic 89–172; BP diastolic 47–80
[2019-09-19] MEDS: INSULIN HUMULIN R 100 UNIT/ML 3ML SQ SCH ×4 (05:35→20:55)
--- NOTE | 2019-09-19 06:10 | NUR ---
Pt slept the majority of the night after receiving Morphone x1 for back pain; new PIV also placed to BARBIE, previous PIV removed due to infiltration; pt is currently resting in bed, respirations even and unlabored; no distress noted. Keiko RN
[2019-09-19] MEDS: CLOPIDOGREL BISULFATE 75 MG TAB PO SCH (08:58)
[2019-09-19] MEDS: LEVETIRACETAM 500 MG TABLET PO SCH ×2 (08:58→20:56)
[2019-09-19] MEDS: ASPIRIN 81MG TAB.CHEW PO SCH (08:59)
[2019-09-19] MEDS: FAMOTIDINE 20MG TAB 20 MG TAB PO SCH (08:59)
[2019-09-19] MEDS: HEPARIN SODIUM 5000UNIT/ML 1ML VIAL SQ SCH ×3 (09:00→20:56)
[2019-09-19] MEDS: ACETAMINOPHEN 325 MG TAB PO PRN (09:00)
[2019-09-19] MEDS: AMLODIPINE BESYLATE 5 MG TAB PO SCH (09:00)
--- NOTE | 2019-09-19 11:50 | NUR ---
Urine cx results Dr. Patric Munoz informed of urine culture results and need prescription for antibiotics at time of discharge.
[2019-09-19] MEDS ORDERED: NITR100C PO (12:20)
--- NOTE | 2019-09-19 14:21 | NUR ---
RD NOTIFICATION Pt admitted with metabolic acidosis, abdominal pain. Pt with decreased appetite and poor PO. Pt pending discharge to hospice. BMI 17.1. Cr 5.7, GFR 8, BG 146. Recommend continue Renal Dialysis Diet Order Recommend Nepro TID RD to continue to monitor. Please notify as additional nutrition concerns arise. Thank you.
[2019-09-19] MEDS ORDERED: HYDROMORPHONE HCL 0.5 MG/0.5 ML ML IVP ONE (14:40)
--- NOTE | 2019-09-19 16:00 | NUR ---
ALL ARRANGEMENT FOR HOSPICE MADE EMS FORMS PLACED ON CHART, RN AWARE
--- NOTE | 2019-09-19 17:20 | NUR ---
PATIENT STOPPING HEMODIALYSIS TREATMENT PATIENT WAS AGREEABLE TO STARTING HEMODIALYSIS TREATMENT UNTIL DURING TREATMENT PATIENT BEGAN TO GET AGITATED AND WANTED HEMODIALYSIS NURSE TO STOP HD TREATMENT. DR. AVILEZ INFORMED AND OKAYED TO PROCEED WITH DISCHARGE HOME ON HOSPICE TODAY AND GAVE ONE TIME ORDER FOR PAIN MEDICATION.
--- NOTE | 2019-09-19 17:45 | NUR ---
POA NOTIFIED PATIENT TO BE DISCHARGED SPOKE TO POWER OF LITHARGE MILL OPERATOR MICHELLE ZHU AND INFORMED PATIENT WILL BE DISCHARGED TODAY AND I WILL CALL EMS IF FAMILY WILL BE HOME TO ACCEPT PATIENT WHEN SHE ARRIVES BY VIA EMS. Pro ZHU REPLIED THAT SHE WOULD BE HOME TO ACCEPT PATIENT. REVIEWED DISCHARGE INSTRUCTIONS AND NEW PRESCRIPTIONS WITH Pro ZHU.
--- NOTE | 2019-09-19 17:48 | NUR ---
REPORT GIVEN TO [facility]
--- NOTE | 2019-09-19 17:50 | NUR ---
[facility] CALL[facility] AND NOTIFIED PATIENT IN ROOM 402 AND READY TO BE TRANSPORTED TO [facility]. ALSO INFORMED PATIENT IS COVID POSTIVE, ON HOSPICE, AND HAS A OOHDNR.
[2019-09-19] MEDS ORDERED: HYDROMORPHONE 1 MG/1 ML AMP IVP ONE (18:35)
--- NOTE | 2019-09-19 19:20 | NUR ---
[facility] RECEIVED CALL FROM URBAN AT [facility] AND SHE TOLD ME SHE SPOKE TO Pro ZHU ([facility]) AND Pro ZHU EXPRESSED SHE DID NOT FEEL READY TO TAKE CARE OF HER MOTHER AT HOME ANYMORE AND DOES NOT WANT PATIENT TO BE TAKE HOME TODAY.
--- NOTE | 2019-09-19 19:24 | NUR ---
Pro ZHU (POA) CALLED Pro ZHU (POA) [phone] TO INQUIRE ABOUT HER CONCERNS. Pro ZHU REPLIED THAT SHE CHANGED HER MIND BECAUSE SHE REALIZED SHE DID NOT FEEL READY AFTER ALL TO TAKE CARE OF PATIENT BECAUSE SHE ALREADY HAS TO PROVIDE CARE FOR HER CHILDREN. STATES SHE WOULD PREFER FOR PATIENT TO GO TO A "CORRECTION."
--- NOTE | 2019-09-19 19:25 | NUR ---
HOSPITALIST PAGED PAGED HOSPITALIST TO REPORT PATIENT FAMILY CONCERNS REGARDING DISCHARGE PLANNING.
--- NOTE | 2019-09-19 19:29 | NUR ---
[facility] CALLED AND INFORMED PATIENT DISCHARGE ON HOLD FOR NOW UNTIL FURTHER NOTICE.
[2019-09-19] MEDS: MORPHINE SULFATE 2 MG/ML 1ML SYG IVP PRN (21:18)
[2019-09-20 00:08] VITALS: BP 146/69
--- NOTE | 2019-09-20 03:03 | NUR ---
Morphine 2mg IV wasted at this time; medication was pulled with 2100 medications to administer at that time however pt needed new IV; upon completion of placing PIV pt was asleep, RR=14; medication was held in case pt woke up needing pain meds however when pt did awake, she stated she was "ok;" medication was wasted at this time in omnicell by this nurse and witnessed by ROMMEL Vanessa; [facility] did not request witness signature. Keiko RN
[2019-09-20 04:08] VITALS: BP 158/60
[2019-09-20] MEDS: INSULIN HUMULIN R 100 UNIT/ML 3ML SQ SCH ×2 (06:02→10:57)
--- NOTE | 2019-09-20 06:08 | NUR ---
Pt rested throughout night and denied complaints of pain; pts morning blood glucose = 65; pt provided with and drank 150ml of apple juice and will be reassessed; pt is asymptomatic at this time. Keiko RN
--- NOTE | 2019-09-20 06:51 | NUR ---
Dialysis Nurse (Roel) spoke with pt in reference to receiving dialysis treatment today and stated pt refused treatment at this time. ROMMEL Aden
[2019-09-20 07:00] VITALS: BP 152/55
--- NOTE | 2019-09-20 08:28 | NUR ---
CALL TO [facility]- TO CLARIFY WISHES. 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 GENERAL MACHINE OPERATOR ASKED WHAT SHE WANTS FOR HER MOM AT [facility]- TO BE ON HOSPICE OR TO CONTINUE HD? REMINDED HER THAT SHE WONT SEE HER MOM IF SHE GOES TO [facility]. ASKED DTR TO TAKE SOME TIME AND CALL CM BACK ABOUT NOON TO ADVISE OF DECISION DTR CALLED BACK ALMOST IMMEDIATELY TO SAY TO ARRANGE FOR DISCHARGE HOME TODAY ADVISED HOSPICE NURSE KANE and sw. spencer call to g station and charge nurse
[2019-09-20] MEDS: LEVETIRACETAM 500 MG TABLET PO SCH (08:34)
[2019-09-20] MEDS: FAMOTIDINE 20MG TAB 20 MG TAB PO SCH (08:34)
[2019-09-20] MEDS: ASPIRIN 81MG TAB.CHEW PO SCH (08:35)
[2019-09-20] MEDS: AMLODIPINE BESYLATE 5 MG TAB PO SCH (08:35)
[2019-09-20] MEDS: CLOPIDOGREL BISULFATE 75 MG TAB PO SCH (08:35)
[2019-09-20] MEDS: HEPARIN SODIUM 5000UNIT/ML 1ML VIAL SQ SCH ×2 (08:36→13:01)
[2019-09-20] MEDS: MORPHINE SULFATE 2 MG/ML 1ML SYG IVP PRN ×2 (08:41→13:00)
[2019-09-20 11:00] VITALS: BP 141/55
[2019-09-20] MEDS ORDERED: LEVOFLOXACIN 250 MG/D5W 50ML 50 ML IVPB SCH (12:00)
[2019-09-20] MEDS ORDERED: HYDROMORPHONE 1 MG/1 ML AMP IVP ONE (14:45)
--- NOTE | 2019-09-20 15:52 | NUR ---
HOME VIA EMS WITH HOSPICE Addendum: 09/20/19 at 1553 by BLAIR LUNDY RN CM Amended: Links added.
== END 2019-09-20 15:45 | DRG 640 ==
LOC: EDH 09:26 → EDHIP 15:19 → OBSVTOIN 15:19 → 4AH 17:37
PROVIDERS: ADMIT Hospitalist; ATTEND Hospitalist
PROC: 5A1D70Z Performance of Urinary Filtration, Intermittent, Less than 6 Hours Per Day (ICD-10-PCS; 2019-09-16)
PROC: 5A1D70Z Performance of Urinary Filtration, Intermittent, Less than 6 Hours Per Day (ICD-10-PCS; principal; 2019-09-19)
DX: E87.5 Hyperkalemia (principal); U07.1 COVID-19; N18.6 End stage renal disease; I12.0 Hypertensive chronic kidney disease with stage 5 chronic kidney disease or end stage renal disease; J98.11 Atelectasis; E87.2 Acidosis; E11.22 Type 2 diabetes mellitus with diabetic chronic kidney disease; Z99.2 Dependence on renal dialysis; E78.5 Hyperlipidemia, unspecified; D64.9 Anemia, unspecified; G89.29 Other chronic pain; I25.2 Old myocardial infarction; K57.90 Diverticulosis of intestine, part unspecified, without perforation or abscess without bleeding; Z82.49 Family history of ischemic heart disease and other diseases of the circulatory system; Z91.19 Patient's noncompliance with other medical treatment and regimen; I71.4 Abdominal aortic aneurysm, without rupture; Z88.0 Allergy status to penicillin
CPT/HCPCS: 36415; 36600; 71045; 74176; 80048; 80053; 80074; 81001; 82550; 82803; 82948; 83605; 83690; 84484; 85025; 85651; 87040; 87077; 87088; 87186; 87426; 90935; 93005; 99291; G0378; J0610; J1170; J1644; J1815; J1956; J2405; J2543; J3370; J3490; J7070